=== PATIENT | male | born 1980 | race Caucasian/White ===

== ENCOUNTER 2018-05-16 14:29 | Emergency (ER) | payer SELFPAY ==
[2018-05-16 14:30] VITALS: BP 135/90; PULSE 95; RESP 17; TEMP 36.8; O2SAT 100; BMI 26.3
--- NOTE | 2018-05-16 14:41 | NURSING ---
NO OLD EKGS
--- NOTE | 2018-05-16 14:54 | RAD_ITS ---
STUDY: X-RAY CHEST REASON FOR EXAM: Male, 37 years old. Weakness and mid chest pain. TECHNIQUE: Single AP portable view of the chest. COMPARISON: None. FINDINGS: EKG electrodes are seen. The lungs are clear and expanded. There is no demonstrated pleural abnormality. Normal size heart. Normal mediastinum and reba. Normal visualized pulmonary arteries. Normal visualized aortic arch and descending thoracic aorta. Normal visualized thoracic spine. Normal visualized ribs, clavicles, and shoulders. There is no demonstrated abnormality of the visualized soft tissue structures of the upper abdomen. RAD/Chest 1 View (Portable) IMPRESSION: Normal x-ray examination of the chest. Electronically Signed: Dimitri Durham MD at 15:12 EDT Tel [phone], Service support ,
--- NOTE | 2018-05-16 14:54 | EKG12_ITS ---
Test Reason : CP Blood Pressure : / mmHG Vent. Rate : 074 BPM Atrial Rate : 074 BPM P-R Int : 134 ms QRS Dur : 088 ms QT Int : 396 ms P-R-T Axes : 063 044 029 degrees QTc Int : 439 ms Normal sinus rhythm Normal ECG Confirmed by GABRIELLA GOMEZ, MITA ([id number]), news editor DEE ARBOLEDA ([id number]) on 05/20/2018 2:49:32 PM Referred By: LETTY Confirmed By:MITA QUIROZ MD
--- NOTE | 2018-05-16 14:57 | ED.VISSUMM ---
- ER Visit Summary Date of Service: 05/16/18 Chief Complaint: Multiple complaints History of Present Illness: The patient is a 37 M with multiple complaints. Over the past 2 weeks he has had increasing reflux. It seems to be worse when he eats anything. He is not taking anything for it. He also reports right ear pain on and off. He feels hot without objective fever. He also complains of blurry vision in both eyes today at work for about an hour. No weakness or numbness. No facial droop. No speech changes. No vertigo. No tinnitus. He does have nausea but no vomiting. No shortness of breath or respiratory symptoms. Patient reports a history of smoking, GERD, depression, and migraines. He never had a stress test or any history of coronary disease. He has no history of PE or DVT. No history of aortic pathology or vascular pathology. Physical Examination: Afebrile and vital signs unremarkable. Patient is sitting in no acute distress. Alert and oriented. HEENT exam unremarkable. Neck is nontender. Heart regular rate and rhythm with no murmurs. Lungs clear bilaterally. Abdomen soft. Pulses strong and equal. Calf soft and supple. Cranial nerves grossly intact. No focal or lateralizing neurologic abnormalities grossly. Test Results: EKG showed sinus rhythm at a rate of 74 with no sign of acute ischemia or infarction pattern. We will check basic labs and a chest x-ray. Emergency Department Course and Treatment: Patient has multiple symptoms. The most concerning would be his chest pain. I did check an EKG, chest x-ray, and labs. He is PERC negative. There is nothing to suggest stroke. There is nothing to suggest vascular pathology like dissection. Patient was treated with a GI cocktail while awaiting results. White count 12.1 otherwise CBC normal. BMP normal. Troponin normal. Chest x-ray normal. Patient has nothing to suggest ACS, PE, dissection, stroke. He is low risk or no risk for all the above and appropriate for outpatient follow-up. This was discussed with the patient. He was referred to Dr. kirkpatrick who is on-call for new patients. Treatment Plan: As above Disposition: Discharged Impression: 1. Chest pain unclear etiology This note was generated with [employer] dictation software. It may contain incorrect words, spelling, and punctuation that were not noted in review of the chart prior to signing ED Disposition - Plan for ED Patient: Chief Complaint: Chest Pain Referrals: Care Physician,No Primary [Primary Care Provider] -
[2018-05-16 14:59] VITALS: O2SAT 98
--- NOTE | 2018-05-16 15:01 | ED.DCSUM_ITS ---
- ER Visit Summary Date of Service: 05/16/18 Chief Complaint: Multiple complaints History of Present Illness: The patient is a 37 M with multiple complaints. Over the past 2 weeks he has had increasing reflux. It seems to be worse when he eats anything. He is not taking anything for it. He also reports right ear pain on and off. He feels hot without objective fever. He also complains of blurry vision in both eyes today at work for about an hour. No weakness or numbness. No facial droop. No speech changes. No vertigo. No tinnitus. He does have nausea but no vomiting. No shortness of breath or respiratory symptoms. Patient reports a history of smoking, GERD, depression, and migraines. He never had a stress test or any history of coronary disease. He has no history of PE or DVT. No history of aortic pathology or vascular pathology. Physical Examination: Afebrile and vital signs unremarkable. Patient is sitting in no acute distress. Alert and oriented. HEENT exam unremarkable. Neck is nontender. Heart regular rate and rhythm with no murmurs. Lungs clear bilaterally. Abdomen soft. Pulses strong and equal. Calf soft and supple. Cranial nerves grossly intact. No focal or lateralizing neurologic abnormalities grossly. Test Results: EKG showed sinus rhythm at a rate of 74 with no sign of acute ischemia or infarction pattern. We will check basic labs and a chest x-ray. Emergency Department Course and Treatment: Patient has multiple symptoms. The most concerning would be his chest pain. I did check an EKG, chest x-ray, and labs. He is PERC negative. There is nothing to suggest stroke. There is nothing to suggest vascular pathology like dissection. Patient was treated with a GI cocktail while awaiting results. White count 12.1 otherwise CBC normal. BMP normal. Troponin normal. Chest x- ray normal. Patient has nothing to suggest ACS, PE, dissection, stroke. He is low risk or no risk for all the above and appropriate for outpatient follow-up. This was discussed with the patient. He was referred to Dr. kirkpatrick who is on-call for new patients. Treatment Plan: As above Disposition: Discharged Impression: 1. Chest pain unclear etiology This note was generated with [employer] dictation software. It may contain incorrect words, spelling, and punctuation that were not noted in review of the chart prior to signing ED Disposition - Plan for ED Patient: Chief Complaint: Chest Pain Referrals: Care Physician,No Primary [Primary Care Provider] -
[2018-05-16] MEDS: Mag Hydrox/Al Hydrox/Simeth 30 ML UDC PO (15:09)
[2018-05-16 15:10] VITALS: BP 143/93; PULSE 79; RESP 16; O2SAT 98
[2018-05-16 15:16] LABS: Absolute Lymphocyte Count 2.71 X10^3/ul (0.83-4.51); Absolute Neutrophil Count 8.3 X10^3/uL (2.0-7.7); Basophil# 0.03 X10^3/uL; Basophil% 0.2 % (0-1); Eosinophil# 0.31 X10^3/uL; Eosinophils% 2.6 % (0-5); Hematocrit 42.5 % (40-54); Hemoglobin 14.3 g/dl (13.0-16.5); Lymphocyte # 2.71 X10^3/ul (4.0); Lymphocyte % 22.3 % (19-41); Mean Corp Hgb Conc 33.6 g/gl (32-36); Mean Corpuscular Hgb 29.8 pg (27.0-32.0); Mean Corpuscular Volume 88.5 fL (80-94); Mean Platelet Vol. 10.3 fl (6.2-12.0); Monocyte# 0.75 X10^3/uL; Monocyte% 6.2 % (0-10); Neutrophil # 8.32 X10^3/uL (2.7-7.7); Neutrophil % 68.5 % (47-70); POSITIVE COUNT NO; POSITIVE DIFFERENTIAL NO; POSITIVE MORPHOLOGY NO; Platelet Count 252 K/mm3 (150-450); RBC Distribution Width CV 12.8 % (11.6-14.6); RBC Distribution Width SD 41.2 fl (35.1-43.9); White Blood Count 12.1 K/mm3 (4.4-11.0)
[2018-05-16 15:21] LABS: Anion Gap 10 (5-15); BUN 15 mg/dL (7-18); BUN/Creat Ratio 13.6 RATIO (10-20); Calcium,Total 9.2 mg/dL (8.5-10.1); Chloride 106 mmol/L (98-107); EST Glomerular Filtration Rate 79 mL/min (>60); Est Glom Filt Rate - Afr Amer 96 mL/min (>60); Estimated Creatinine Clearance 93.09 ml/min; Glucose 87 mg/dL (74-106); Potassium 3.9 mmol/L (3.5-5.1); Sodium Level 142 mmol/L (136-145)
--- NOTE | 2018-05-16 16:03 | ED.DEP ---
ED Disposition - Plan for ED Patient: Chief Complaint: Chest Pain Instructions: ED Chest Pain Atypical Unkn Cause Prescriptions: Naproxen [Naprosyn] 500 mg PO BID PRN #20 tab Referrals: Mya Kenyon DO [NON-STAFF] -
[2018-05-16 16:28] VITALS: BP 143/93; PULSE 76; RESP 23; O2SAT 97
== END 2018-05-16 16:28 | disposition home or self-care (01) ==
LOC: ED 15:01
PROVIDERS: Emergency Provider Emergency Medicine
DX: R07.9 Chest pain, unspecified (principal); F17.210 Nicotine dependence, cigarettes, uncomplicated
CPT/HCPCS: 71045; 80048; 84484; 85025; 93005; 99285; A4216

== ENCOUNTER → 2018-11-04 11:01 | Outpatient (CLI) | payer SELFPAY ==
--- NOTE | 2018-11-04 11:06 | US_ITS ---
STUDY: RENAL ULTRASOUND - COMPLETE REASON FOR EXAM: Male, 37 years old. Elevated BUN/creatinine TECHNIQUE: Ultrasound evaluation of the kidneys was performed with real-time and static davis-scale imaging. COMPARISON: None. FINDINGS: RIGHT KIDNEY: Normal location of the right kidney, which is normal in size. The right kidney measures 10.7 x 5.5 x 4.3 cm. There is a normal cortex of the right kidney. The renal cortex measures 1.3 cm. There is a complex 1.7 cm cyst and a simple 1.6 cm cyst. There are no right renal calculi. There is no right hydronephrosis. DISTAL RIGHT URETER: There is non-visualization of the distal right ureter. There is no demonstrated right ureterovesical junction calculus. There is a visualized right ureteral jet. LEFT KIDNEY: Normal location of the left kidney, which is normal in size. The left kidney measures 11.9 x 5.4 x 6.4 cm. There is a normal cortex of the left kidney. The renal cortex measures 2.0 cm. There is no left renal mass or cyst. There are no left renal calculi. There is no left hydronephrosis. DISTAL LEFT URETER: There is non-visualization of the distal left ureter. There is no demonstrated left ureterovesical junction calculus. There is a visualized left ureteral jet. AORTA: There is no elongation or tortuosity of the abdominal aorta. I.V.C.: The IVC is patent. BLADDER: The distended urinary bladder has a volume of 482.2 ml. There is a normal wall thickness of the distended urinary bladder. There is no demonstrated mass within the urinary bladder. There are no demonstrated bladder calculi. US/Kidney and Bladder IMPRESSION: Renal cysts, no obstructive uropathy or suspicious solid lesion Electronically Signed: David Mckeon MD at 18:13 EDT , Service support ,
== END ==
LOC: US 11:03
PROVIDERS: Family Provider Family Medicine; PCP Family Medicine; Referring Provider Family Medicine; Visit Provider Family Medicine
DX: N28.1 Cyst of kidney, acquired (principal)
CPT/HCPCS: 76770

== ENCOUNTER 2024-06-12 14:01 | Emergency (ER) | payer SELFPAY ==
[2024-06-12 14:04] VITALS: BP 157/106; PULSE 87; RESP 18; TEMP 36.4; O2SAT 100; BMI 25.5
[2024-06-12 15:49] VITALS: BP 140/98; PULSE 77; RESP 17; O2SAT 97
--- NOTE | 2024-06-12 16:39 | EKG12_ITS ---
Test Reason : Blood Pressure : / mmHG Vent. Rate : 065 BPM Atrial Rate : 065 BPM P-R Int : 140 ms QRS Dur : 086 ms QT Int : 414 ms P-R-T Axes : 067 052 047 degrees QTc Int : 430 ms Normal sinus rhythm Normal ECG Confirmed by ARIELA MILLAN MD ([id number]), index editor SOLEDAD FARMER ([id number]) on 06/13/2024 9:58:38 AM Referred By: Confirmed By:ARIELA MILLAN MD
--- NOTE | 2024-06-12 16:41 | ED.VIS.GI ---
HPI HPI - GI History of Present Illness Chief Complaint: Chest Other Informant: patient Narrative Narrative: 43-year-old male states he has been having epigastric pain within 20 minutes of swallowing any food regardless of what it is for the past 2 or so weeks. Today he was having it, and pain went up his chest and he felt like he was having some trouble breathing. That is gone now, he still has pain near his xiphoid process but it is milder relatively. This discomfort is been associated with nausea but no vomiting. He has had normal colored bowel movements without any melena or bright red blood. No palpitations or syncopal episodes. He denies any leg pain or swelling or recent long travel or immobilization/hospitalization/surgery recently. He rarely uses alcohol, he had 2 beers last night but it did not make the pain come on or make it worse. He states he does take a lot of ibuprofen, sometimes several times a week due to migraines, as it helps those. He does not see a primary care doctor and accordingly is on no medications chronically. [facility] Medical History (Updated 06/12/24 @ 19:[address] Bon Bruce MD) Migraines Home Medications ?Medication ?Instructions ?Recorded ?Last Taken ?Type meloxicam 15 mg tablet 15 mg PO DAILY PRN Pain #30 tabs 06/12/24 Unknown Rx pantoprazole 40 mg tablet,delayed 40 mg PO DAILY #30 tabs 06/12/24 Unknown Rx release sucralfate 1 gram tablet (Carafate) 1 g PO TID 1 week #21 tabs 06/12/24 Unknown Rx Allergy/AdvReac Type Severity Reaction Status Date / Time No Known Allergies Allergy Verified 06/12/24 14:04 Family History (Updated 01/19/23 @ 08:06 by Winsome Goodman) Mother Hypertension Heart problem Arthritis Surgical History History of left knee surgery Social History (Updated 06/12/24 @ 16:[address] Bon Bruce MD) Smoking Status: Current every day smoker tobacco type: cigarettes alcohol intake: current alcohol intake frequency: a few times a month ROS ROS ED Constitutional Constitutional ED: Denies chills or fever(s) Eyes Eyes: Denies change in vision or diplopia ENT ENT ED: Denies rhinorrhea or sore throat Cardiovascular Cardiovascular: Reports chest pain; Denies palpitations Respiratory/Chest Respiratory/Chest: Reports dyspnea; Denies cough Gastrointestinal Gastrointestinal: Reports abdominal pain and nausea; Denies diarrhea, hematochezia, melena or vomiting Genitourinary Genitourinary ED: Denies dysuria or hematuria Musculoskeletal Musculoskeletal: Denies back pain or neck pain Integumentary Denies abscess or rash Neurologic Neurologic: Denies headache(s), paresthesias or weakness Psychiatric Psychiatric: Denies anxiety or suicidal thoughts EXAM Physical Exam Const Vital Signs: 06/12/24 14:04 06/12/24 15:49 06/12/24 16:55 Temperature 97.6 F L Temperature Source Temporal Pulse Rate 87 77 Respiratory Rate 18 17 Blood Pressure 157/106 H 140/98 H Blood Pressure Mean 123 112 Pulse Ox 100 97 Oxygen Delivery Method Room Air Room Air Room Air 06/12/24 17:00 06/12/24 18:25 Temperature Temperature Source Pulse Rate 67 72 Respiratory Rate 16 20 H Blood Pressure 139/91 H 137/96 H Blood Pressure Mean 107 109 Pulse Ox 98 95 Oxygen Delivery Method Room Air Room Air Positive well nourished and well developed General Appearance ED: well developed and NAD HEENT Reports moist mucous membranes normocephalic and atraumatic Eyes PERRL and EOMs intact bilaterally Neck full ROM and supple Resp normal respiratory effort and clear to auscultation bilaterally Cardio regular rate, regular rhythm and no murmurs GI non-distended GI Narrative: Mild tenderness high epigastric area, otherwise benign abdomen. No pulsatile mass. Normal inspection. Auscultation: normoactive bowel sounds Palpation: soft Back/Spine no CVA tenderness General Back: other FROM Extremity normal to inspection General Extremety ED: Negative for edema, pulses abnormal or tenderness General Extremity: Negative for edema or pulses abnormal Neuro oriented x3, CN's II-XII intact bilaterally and no sensory deficits noted Sensorium / Orientation: awake and alert Motor Exam: strength 5/5 throughout Skin no rashes or lesions noted and no wounds MDM MDM MDM Narrative Medical decision making narrative: I suspect this patient's episode of chest discomfort today was related to the abdominal discomfort he has been having. This is confirmed with a negative troponin and normal EKG and a normal 1 view chest x-ray on my interpretation as confirmed by radiology. Differential for his upper abdominal pain includes gastritis, peptic ulcer disease, biliary colic, pancreatitis, hepatitis, other acute GI issues. My suspicion is that this is a functional upper GI problem hence the esophagus being involved in giving him chest discomfort today, at least that is my suspicion. The chest x-ray also in my interpretation does not show any free air under the diaphragm to suggest a perforated stomach ulcer. His labs show mild leukocytosis which is very nonspecific, no sign of anemia or elevated BUN to suggest an acute upper GI hemorrhage, and his liver and lipase labs are all normal. In the meantime he was given a GI cocktail, this help temporarily but then he gets more epigastric burning although it was mild. I did a bedside ultrasound screen for gallstones, it is negative for gallstones, gallbladder wall 0.17 cm, within normal limits, and he has a negative sonographic Celeste. Given this I think he is stable for discharge home. I am going to change his ibuprofen to meloxicam and place him on a PPI along with Carafate for the next week, advised to follow-up he was given the next doctor on the unassigned list to follow-up with. Lab Data Attestation: I reviewed the patient's lab results. Labs: Laboratory Results - last 24 hr 06/12/24 15:45 WBC 11.5 H RBC 4.68 Hgb 13.9 Hct 41.4 MCV 88.5 MCH 29.7 MCHC 33.6 RDW Std Deviation 40.8 RDW Coeff of Radha 12.5 Plt Count 279 MPV 10.4 Immature Gran % (Auto) 0.300 Neut % (Auto) 61.6 Lymph % (Auto) 30.7 Posey % (Auto) 5.4 Eos % (Auto) 1.6 Baso % (Auto) 0.4 Absolute Neuts (auto) 7.1 Absolute Lymphs (auto) 3.53 Nucleated RBC % 0 Sodium 140 Potassium 3.9 Chloride 108 H Carbon Dioxide 26.0 Anion Gap 6 BUN 12 Creatinine 1.04 Estim Creat Clear Calc 92.61 Est GFR (MDRD) Af Amer 99 Est GFR (MDRD) Non-Af 82 BUN/Creatinine Ratio 11.5 Glucose 81 Calcium 9.2 Total Bilirubin 0.50 AST 21 ALT 22 Alkaline Phosphatase 48 Troponin I High Sens 3 Total Protein 7.4 Albumin 4.2 Globulin 3.2 Albumin/Globulin Ratio 1.3 Lipase 46 Radiography Diagnostic Testing: Clinical Impression(s) from Imaging Studies Chest X-Ray 06/12/24 17:10 IMPRESSION: No radiographic evidence of acute cardiopulmonary disease. Electronically Signed: Cr Kim DO at 18:18 EDT Reading Location ID and State: [facility] / [place] Tel [phone], Service support , Rhythm Strip Rhythm Strip: Sinus Rhythm Rate: 65 Ectopy: None EKG Initial EKG: Attestation: I personally reviewed and interpreted this EKG as follows: Interpretation: Sinus Rhythm and No Acute Injury Pattern Comments: Normal EKG Discharge Plan Triage Chief Complaint: Chest Other Other Complaint: Abd Pain ED Provider: Bon Bruce Dx/Rx/DC Orders Clinical Impression: Acute gastritis without bleeding, Chest pain, non-cardiac Instructions: ED Chest Pain, Noncardiac, ED Gastritis Ulcer No Abx Prescriptions: New sucralfate [Carafate] 1 gram tablet 1 g PO TID 7 Days Qty: 21 0RF pantoprazole 40 mg tablet,delayed release (DR/EC) 40 mg PO DAILY Qty: 30 0RF Changed meloxicam 15 mg tablet 15 mg PO DAILY PRN (Reason: Pain) Qty: 30 1RF Rx Instructions: Stop/do not take any other NSAID while taking Mobic. Primary Care Provider: Care Physician,No Primary Referrals: Fe Carmichael DO [Med Staff - Active Staff] - 1-2 Weeks Care Physician,No Primary [Primary Care Provider] - Print Language: Urdu Disposition Disposition: Home, Self Care
[2024-06-12] MEDS: Ondansetron 4 MG/2 ML Vial IV (16:57)
[2024-06-12] MEDS: Mag Hydrox/Al Hydrox/Simeth 30 ML UDC PO (16:58)
[2024-06-12] MEDS: Pantoprazole Sodium 40 MG Tablet PO (16:58)
[2024-06-12] MEDS: Lidocaine 2% Viscous15 ML UDC 15 ML PO (16:58)
[2024-06-12 17:00] VITALS: BP 139/91; PULSE 67; RESP 16; O2SAT 98
[2024-06-12 17:02] LABS: Hematocrit 41.4 % (40-54); Hemoglobin 13.9 g/dL (13.0-16.5); Lymphocyte % 30.7 % (19-41); Mean Corp Hgb Conc 33.6 g/dL (32-36); Mean Corpuscular Hgb 29.7 pg (27.0-32.0); Mean Corpuscular Volume 88.5 fL (80-94); Mean Platelet Vol. 10.4 fl (6.2-12.0); Neutrophil % 61.6 % (47-70); Platelet Count 279 K/mm3 (150-450); RBC Distribution Width CV 12.5 % (11.6-14.6); RBC Distribution Width SD 40.8 fl (35.1-43.9); Red Blood Count 4.68 M/mm3 (4.6-6.2); White Blood Count 11.5 K/mm3 (4.4-11.0)
[2024-06-12 17:03] LABS: Absolute Lymphocyte Count 3.53 X10^3/uL (0.83-4.51); Absolute Neutrophil Count 7.1 X10^3/uL (2.0-7.7); Basophil# 0.05 X10^3/uL; Basophil% 0.4 % (0-1); Eosinophil# 0.18 X10^3/uL; Eosinophils% 1.6 % (0-5); Lymphocyte # 3.53 X10^3/ul (0.83-4.51); Monocyte# 0.62 X10^3/uL; Monocyte% 5.4 % (0-10); NRBC Flagged by Analyzer 0 % (0-5); Neutrophil # 7.08 X10^3/uL (2.7-7.7)
--- NOTE | 2024-06-12 17:10 | RAD_ITS ---
INDICATION: chest pain EXAMINATION/TECHNIQUE: X-RAY - XR Chest 1 View COMPARISON: May 16, 2018 FINDINGS: LINES/DEVICES: None. LUNGS: No consolidation, edema or effusion. No pneumothorax. MEDIASTINUM AND CARDIOVASCULAR STRUCTURES: Cardiac silhouette not enlarged. Central airways and mediastinal contour are unremarkable. BONES AND SOFT TISSUES: Unremarkable. RAD/Chest 1 View (Portable) IMPRESSION: No radiographic evidence of acute cardiopulmonary disease. Electronically Signed: Cr Kim DO at 18:18 EDT ,
[2024-06-12 17:29] LABS: ALB/GLOB Ratio 1.3 RATIO (0.9-2.4); AST(SGOT) 21 U/L (15-37); Alanine Aminotransfer ALT/SGPT 22 U/L (16-61); Albumin, Serum 4.2 g/dL (3.2-5.0); Alkaline Phosphatase 48 U/L (45-117); Anion Gap 6 (5-15); BUN 12 mg/dL (7-18); BUN/Creat Ratio 11.5 RATIO (10-20); Calcium,Total 9.2 mg/dL (8.5-10.1); Chloride 108 mmol/L (98-107); Creatinine, Serum 1.04 mg/dL (0.70-1.30); EST Glomerular Filtration Rate 82 mL/min (>60); Est Glom Filt Rate - Afr Amer 99 mL/min (>60); Estimated Creatinine Clearance 92.61 ml/min; Globulin 3.2 g/dL (2.2-4.2); Glucose 81 mg/dL (74-106); Lipase 46 U/L (13-75); Potassium 3.9 mmol/L (3.5-5.1); Protein, Total 7.4 g/dL (6.4-8.2); Sodium Level 140 mmol/L (136-145); Troponin-I HS 3 pg/mL (3.0-78.0)
[2024-06-12 18:25] VITALS: BP 137/96; PULSE 72; RESP 20; O2SAT 95
[2024-06-12 19:47] VITALS: BP 138/98; PULSE 70; RESP 16; TEMP 36.8; O2SAT 97
== END 2024-06-12 19:55 | disposition home or self-care (01) ==
PROVIDERS: Emergency Provider Emergency Medicine; Visit Provider Emergency Medicine
DX: K29.00 Acute gastritis without bleeding (principal); R07.89 Other chest pain; G43.909 Migraine, unspecified, not intractable, without status migrainosus; F17.210 Nicotine dependence, cigarettes, uncomplicated
CPT/HCPCS: 71045; 80053; 83690; 84484; 85025; 93005; 96374; 99285; A4216; J2405

== ENCOUNTER 2025-01-14 13:50 | Emergency (ER) | payer SELFPAY ==
[2025-01-14] VITALS (7 sets, daily range): BP systolic 134–149; BP diastolic 87–107; PULSE 76–91; RESP 15–22; TEMP 36.8–37.1; O2SAT 97–100; BMI 24.3
--- NOTE | 2025-01-14 14:46 | EKG12_ITS ---
Test Reason : GENERAL Blood Pressure : */* mmHG Vent. Rate : 87 BPM Atrial Rate : 87 BPM P-R Int : 128 ms QRS Dur : 84 ms QT Int : 368 ms P-R-T Axes : 62 31 43 degrees QTcB Int : 442 ms Normal sinus rhythm Normal ECG Confirmed by WILLIAM JON ([id number]), tape editor ADENIKE PRASAD ([id number]) on 01/19/2025 8:05:00 AM Referred By: Heath Dixon Confirmed By: WILLIAM JON
--- NOTE | 2025-01-14 14:46 | RAD_ITS ---
PROCEDURE: CHEST 1 VIEW (PORTABLE) 01/14/2025 REASON FOR EXAM: DYSPNEA Confusion. TECHNIQUE: Frontal view of the chest. COMPARISON: None FINDINGS: Hardware: EKG electrodes are seen. Heart: Cardiac and mediastinal contours are stable. Lungs: No significant change in the appearance of the lungs. Bones: The bones are unremarkable. Other: RAD/Chest 1 View (Portable) IMPRESSION: No Acute Findings. Reading Location: [place] [id number]
--- NOTE | 2025-01-14 14:56 | EDS_ITS ---
HPI History of Present Illness Chief Complaint: General Illness Informant: patient Narrative Narrative: 44-year-old male presenting to the emergency room concern for nausea and lightheadedness. Patient states over the past several months he has had intermittent days where he is felt lightheaded when he exerts himself. He states they typically are isolated days. Over the past 3 days he has found that when he exerts himself he feels more lightheaded. He denies chest pain or palpitations. He feels like he is urinating significantly more frequently but he is also been drinking a lot of fluids. He states he cannot seem to quench his thirst. He notes night sweats and some intermittent dyspnea. He notes he is a smoker but is different than normal. He notes about a 15 pound weight loss over the past month. He notes cramping of his bilateral legs. He states he has had fevers ranging from 98 degrees to 100 and he took some ibuprofen this morning. No rashes. He denies any abdominal bloating. He notes some intermittent diarrhea over the past couple months but also has been having normal stools. He does not have a current primary care doctor and is not currently treated for any medical problems. No black or bloody stools. I do see that the patient was seen in 2023 with gastritis. [facility] Medical History Migraines Home Medications ?Medication ?Instructions ?Recorded ?Last Taken ?Type pantoprazole 40 mg tablet,delayed 40 mg PO DAILY #30 t abs 01/14/25 Unknown Rx release (Protonix) Allergy/AdvReac Type Severity Reaction Status Date / Time No Known Allergies Allergy Verified 01/14/25 13:51 Family History Mother Hypertension Heart problem Arthritis Surgical History History of left knee surgery Social History Smoking Status: Current every day smoker tobacco type: cigarettes alcohol intake: current alcohol intake frequency: a few times a month ROS ROS ED Constitutional Constitutional ED: Reports chills, fever(s), sweats and weight loss Eyes Eyes: Denies change in vision or diplopia ENT ENT ED: Denies ear pain, rhinorrhea or sore throat Cardiovascular Cardiovascular: Reports other Details: Lightheadedness ; Denies chest pain, orthopnea, palpitations or racing heartbeat Respiratory/Chest Respiratory/Chest: Reports dyspnea; Denies cough or orthopnea Gastrointestinal Gastrointestinal: Reports diarrhea and nausea; Denies abdominal pain or vomiting Genitourinary Genitourinary ED: Reports urinary frequency; Denies dysuria or hematuria Musculoskeletal Musculoskeletal: Denies arthralgias or myalgias Integumentary Denies abscess or rash Neurologic Neurologic: Denies headache(s) or weakness Psychiatric Psychiatric: Denies anxiety, depression, suicidal ideation or suicidal thoughts Endocrine Endocrinology: Reports polydipsia and polyuria; Denies polyphagia Allergic/Immunologic Allergic/Immunologic ED: Denies mouth swelling, tongue swelling or urticaria EXAM Physical Exam Const Vital Signs: 01/14/25 13:51 01/14/25 13:59 01/14/25 15:51 Temperature 98.7 F Temperature Source Oral Pulse Rate 87 76 Respiratory Rate 18 15 Respiratory Effort Normal Respiratory Pattern Normal Blood Pressure 146/107 H 149/97 H Blood Pressure Mean 120 114 Pulse Ox 97 98 Oxygen Delivery Method Room Air Room Air 01/14/25 16:36 01/14/25 16:45 01/14/25 17:00 Temperature Temperature Source Pulse Rate 91 76 83 Respiratory Rate 17 17 22 H Respiratory Effort Respiratory Pattern Blood Pressure Blood Pressure Mean Pulse Ox Oxygen Delivery Method 01/14/25 17:15 Temperature Temperature Source Pulse Rate 91 Respiratory Rate 21 H Respiratory Effort Respiratory Pattern Blood Pressure 134/87 H Blood Pressure Mean 102 Pulse Ox 100 Oxygen Delivery Method Room Air MDM MDM MDM Narrative Medical decision making narrative: Differential diagnosis includes but not limited to cardiac dysrhythmia electrolyte abnormality hyperglycemia acute kidney injury UTI malignancy dehydration anemia My independent interpretation of the chest x-ray is no acute process. EKG is a normal sinus rhythm at a rate of 87 bpm. Accu-Chek is 92. White blood cell count is elevated 14 with 71.8 neutrophils. Hemoglobin is 14 platelet count is 289. BMP liver lipase shows no acute findings. Urinalysis is negative. CT of the brain as well as CT of the abdomen pelvis with IV contrast was obtained. These were read by radiology and reviewed by myself. Noncontrasted head CT shows no acute findings. CT of the abdomen pelvis does not demonstrate any significant findings that I feel would explain his symptomology. Please see radiologist full read. Patient has been diagnosed with gastritis in the past. I do wonder if this could impart be to gastritis. Will place him on Protonix. Would asked that he follow-up with gastroenterology for possible EGD or further workup. Social work did visit with patient and encouraged establishment of primary care. History & Record Review Discussion w/independent historian: Patient Additional record(s) reviewed:: Prior ED visit and Prior labs Lab Data Attestation: I reviewed the patient's lab results. Labs: Laboratory Results - last 24 hr 01/14/25 01/14/25 01/14/25 14:57 15:03 15:48 WBC 14.0 H RBC 4.58 L Hgb 14.0 Hct 41.3 MCV 90.2 MCH 30.6 MCHC 33.9 RDW Std Deviation 41.7 RDW Coeff of Radha 12.6 Plt Count 289 MPV 10.5 Immature Gran % (Auto) 0.400 Neut % (Auto) 71.8 H Lymph % (Auto) 21.9 [place] % (Auto) 4.9 Eos % (Auto) 0.6 Baso % (Auto) 0.4 Absolute Neuts (auto) 10.1 H Absolute Lymphs (auto) 3.07 Nucleated RBC % 0 Sodium 137 Potassium 3.7 Chloride 103 Carbon Dioxide 22.2 Anion Gap 12 BUN 11 Creatinine 1.04 Estim Creat Clear Calc 91.64 Est GFR (MDRD) Non-Af 90 BUN/Creatinine Ratio 10.1 Glucose 92 Calcium 9.3 Magnesium 2.0 Total Bilirubin 0.50 Direct Bilirubin 0.21 AST 21 ALT 15 Alkaline Phosphatase 56 Total Protein 7.0 Albumin 4.4 Globulin 2.6 Lipase 32 Urine Color Straw Urine Clarity Clear Urine pH 6.5 Ur Specific Gunter 1.005 Urine Protein Negative Urine Glucose (UA) Normal Urine Ketones Negative Urine Occult Blood Negative Urine Nitrite Negative Urine Bilirubin Negative Urine Urobilinogen Normal Ur Leukocyte Esterase Negative Urine RBC 0-5 SEEN Urine WBC 0 SEEN Ur Squamous Epith Cells 0 SEEN Urine Bacteria 0 SEEN Urine Mucus 0 SEEN POC Glucose 92 Radiography Diagnostic Testing: Clinical Impression(s) from Imaging Studies Chest X-Ray 01/14/25 14:46 IMPRESSION: No Acute Findings. Reading Location: [facility] Abdomen/Pelvis CT 01/14/25 16:10 IMPRESSION: Fluid-filled portions of the small bowel, no dilatation or wall thickening, may represent ileus versus enteritis. OVERALL FINAL ASSESSMENT: . LI-RADS is not meant to be used in patients <18 years or patients with cirrhosis due to congenital hepatic fibrosis or due to vascular disorders, because these patients have a lower chance of developing HCC. Reading Location: [facility] Brain CT 01/14/25 16:10 IMPRESSION: NO ACUTE FINDINGS Reading [facility] E[facility] Initial EKG: Attestation: I personally reviewed and interpreted this EKG as follows: Comments: Normal sinus rhythm ventricular rate of 87 bpm. Discharge Plan Triage Chief Complaint: General Illness ED Provider: Heath Dixon Dx/Rx/DC Orders Clinical Impression: Nausea, Abnormal weight loss Prescriptions: New pantoprazole [Protonix] 40 mg tablet,delayed release (DR/EC) 40 mg PO DAILY Qty: 30 0RF Primary Care Provider: Care Physician,No Primary Referrals: Kevin,Calderon, [Med Staff - Active Staff] - (for GI evaluation of nausea/weight loss) Care Physician,No Primary [Primary Care Provider] - Print Language: Tamazight Disposition Disposition: Home, Self Care
[2025-01-14 15:21] LABS: Bedside Glucose 92 mg/dL (74-106)
[2025-01-14 15:31] LABS: Absolute Lymphocyte Count 3.07 X10^3/uL (0.83-4.51); Absolute Neutrophil Count 10.1 X10^3/uL (2.0-7.7); Basophil# 0.05 X10^3/uL; Basophil% 0.4 % (0-1); Eosinophil# 0.08 X10^3/uL; Eosinophils% 0.6 % (0-5); Hematocrit 41.3 % (40-54); Lymphocyte # 3.07 X10^3/ul (0.83-4.51); Lymphocyte % 21.9 % (19-41); Mean Corp Hgb Conc 33.9 g/dL (32-36); Mean Corpuscular Hgb 30.6 pg (27.0-32.0); Mean Corpuscular Volume 90.2 fL (80-94); Mean Platelet Vol. 10.5 fl (6.2-12.0); Monocyte# 0.69 X10^3/uL; Monocyte% 4.9 % (0-10); NRBC Flagged by Analyzer 0 % (0-5); Neutrophil % 71.8 % (47-70); Platelet Count 289 K/mm3 (150-450); RBC Distribution Width CV 12.6 % (11.6-14.6); RBC Distribution Width SD 41.7 fl (35.1-43.9); Red Blood Count 4.58 M/mm3 (4.6-6.2)
[2025-01-14 15:44] LABS: AST(SGOT) 21 U/L (<=37); Alanine Aminotransfer ALT/SGPT 15 U/L (<=46); Albumin, Serum 4.4 g/dL (3.5-5.0); Alkaline Phosphatase 56 U/L (40-129); Anion Gap 12 (5-15); BUN 11 mg/dL (4-19); BUN/Creat Ratio 10.1 RATIO (10-20); Bilirubin, Direct 0.21 mg/dL (0.00-0.30); Calcium,Total 9.3 mg/dL (7.6-11.0); Carbon Dioxide 22.2 mmol/L (21.0-32.0); Chloride 103 mmol/L (98-108); Creatinine, Serum 1.04 mg/dL (0.70-1.20); EST Glomerular Filtration Rate 90 (>60); Estimated Creatinine Clearance 91.64 ml/min (50-250); Globulin 2.6 g/dL (2.2-4.2); Glucose 92 mg/dL (70-99); Lipase 32 U/L (13-75); Potassium 3.7 mmol/L (3.3-5.1); Sodium Level 137 mmol/L (133-145)
[2025-01-14 15:54] LABS: Bacteria 0 SEEN /hpf (None Seen); Mucous, Urine 0 SEEN /hpf (<or=2+); Squamous Epithelial Cells - UA 0 SEEN /hpf (0-5); White Blood Cells 0 SEEN /hpf (0-5)
--- NOTE | 2025-01-14 16:10 | CT_ITS ---
PROCEDURE: ABDOMEN/PELVIS W IV CONT ONLY 01/14/2025 REASON FOR EXAM: NAUSEA WEIGHT LOSS TECHNIQUE: Abdomen and pelvis CT with intravenous contrast. Coronal and Sagittal reconstruction series were provided. PATIENT PREPARATION: Per protocol ORAL CONTRAST TYPE: None. AMOUNT: mL CONTRAST: Isovue 370 VOLUME: 94 mL Not Provided Gauge IV One or more dose reduction techniques were used (e.g., Automated exposure control, adjustment of the mA and/or kV according to patient size, use of iterative reconstruction technique. RADIATION DOSE SUMMARY: CTDlvol: 17 mGy DLP: 933 mGycm COMPARISON: None FINDINGS: Lung bases: Mild dependent atelectasis Liver: Normal size. No mass. Gallbladder: Unremarkable Spleen: Normal size. Pancreas: Normal size without evidence of mass surrounding inflammation or ductal dilation. Adrenals: Unremarkable Kidneys: Small bilateral renal cysts. No follow-up is recommended. No evidence of hydronephrosis or nephrolithiasis. Bladder: Unremarkable Reproductive Organs: Unremarkable Bowel: Evaluation of the bowel loops are limited due to lack of oral contrast. Stomach appears grossly unremarkable. Fluid-filled portions of the small bowel, particularly distal small bowel within the right lower quadrant, no dilatation no wall thickening or adjacent stranding. Differentials would include ileus versus enteritis. Large bowel is grossly unremarkable. Appendix: Unremarkable Lymph nodes: No lymphadenopathy. Vasculature: Mild diffuse atherosclerotic calcifications are noted. Peritoneum / Retroperitoneum: Unremarkable Bones: Slight anterolisthesis of L3 on L4. CT/Abdomen/Pelvis W IV Cont ONLY IMPRESSION: Fluid-filled portions of the small bowel, no dilatation or wall thickening, may represent ileus versus enteritis. OVERALL FINAL ASSESSMENT: . LI-RADS is not meant to be used in patients <18 years or patients with cirrhosi s due to congenital hepatic fibrosis or due to vascular disorders, because these patients have a lower chance of developing HC C. Reading Location: [facility]
--- NOTE | 2025-01-14 16:10 | CT_ITS ---
PROCEDURE: BRAIN/HEAD WITHOUT CONTRAST 01/14/2025 REASON FOR EXAM: DIZZINESS NAUSEA TECHNIQUE: Head CT without intravenous contrast. Coronal and Sagittal reconstruction series were provided. One or more dose reduction techniques were used (e.g., Automated exposure control, adjustment of the mA and/or kV according to patient size, use of iterative reconstruction technique. RADIATION DOSE SUMMARY: CTDlvol: 47 mGy DLP: 1049 mGycm COMPARISON: None FINDINGS: Brain: Within normal limits for age CSF Spaces: Normal Sinuses/Mastoids: Clear at visualized levels Bones: Unremarkable CT/Brain/Head without Contrast IMPRESSION: NO ACUTE FINDINGS Reading Location: [facility]
[2025-01-14 16:57] LABS: Color, Urine Straw (Yellow); Glucose, Dipstick Normal (Normal); Ketone-Dipstick Negative (Negative); Leukocyte Esterase-Dipstick Negative /ul (Negative); Nitrite-Dipstick Negative (Negative); Occult Blood-Urine Negative /ul (Negative); Protein-Dipstick Negative (Negative); Specific Gravity, Urine 1.005 (1.002-1.030); Urine Bilirubin Dipstick Negative (Negative); Urine Clarity Clear (Clear); Urine Urobilinogen Normal (Normal); Urine pH 6.5 (5.0 - 8.0)
--- NOTE | 2025-01-14 17:33 | ED.RN ---
LAB CALLED FOR OUTSTANDING URINE RESULTS. RESPONSE I HAVE THE FIRST PART AND THE MICROSCOPIC IS RUNNING
--- NOTE | 2025-01-14 17:43 | ED.RN ---
CT CALLED FOR OUTSTANDING IMAGE READ. RESPONSE, IT LOOKS LIKE THEY READ THE BRAIN, AND IT SHOULD HAVE BEEN BACK AT 1715. I WILL CALL AND FIND OUT
[2025-01-14 17:49] LABS: Red Blood Cells-Urine 0-5 SEEN /hpf (0-5)
--- NOTE | 2025-01-14 18:07 | CM.ED ---
Social work Reason for referral: no PCP Referral source: case find This SW identified patient's lack of PCP and need for resources. This SW entered patient's room, introducing self and role at [facility]. Patient accepted SW visit and gave permission for SW to speak with patient's on the phone. Patient confirmed not having a PCP and accepted resources of [facility] Provider Directory and Liz Menezes information. Patient denied further needs at this time. Berta Eddy, [employer], [employer]
== END 2025-01-14 18:33 | disposition home or self-care (01) ==
PROVIDERS: Emergency Provider Emergency Medicine; Referring Provider Emergency Medicine; Visit Provider Emergency Medicine
DX: R11.0 Nausea (principal); R63.4 Abnormal weight loss; R61 Generalized hyperhidrosis; R42 Dizziness and giddiness; R06.00 Dyspnea, unspecified; F17.210 Nicotine dependence, cigarettes, uncomplicated
CPT/HCPCS: 70450; 71045; 74177; 80048; 80076; 81001; 82962; 83690; 83735; 85025; 93005; 99283; Q9967; A4216

== ENCOUNTER 2025-01-25 22:07 | Emergency (ER) | payer SELFPAY ==
[2025-01-25 22:08] VITALS: BP 159/87; PULSE 98; RESP 18; TEMP 36.6; O2SAT 100; BMI 23.5
[2025-01-25 22:54] LABS: Absolute Lymphocyte Count 3.57 X10^3/uL (0.83-4.51); Absolute Neutrophil Count 10.2 X10^3/uL (2.0-7.7); Basophil# 0.09 X10^3/uL; Basophil% 0.6 % (0-1); Eosinophil# 0.15 X10^3/uL; Hematocrit 41.6 % (40-54); Hemoglobin 14.5 g/dL (13.0-16.5); Lymphocyte # 3.57 X10^3/ul (0.83-4.51); Lymphocyte % 22.9 % (19-41); Mean Corp Hgb Conc 34.9 g/dL (32-36); Mean Corpuscular Hgb 30.7 pg (27.0-32.0); Mean Corpuscular Volume 87.9 fL (80-94); Mean Platelet Vol. 10.1 fl (6.2-12.0); Monocyte# 1.46 X10^3/uL; Monocyte% 9.4 % (0-10); NRBC Flagged by Analyzer 0 % (0-5); Neutrophil # 10.23 X10^3/uL (2.7-7.7); Neutrophil % 65.7 % (47-70); Platelet Count 287 K/mm3 (150-450); RBC Distribution Width CV 12.6 % (11.6-14.6); RBC Distribution Width SD 41.1 fl (35.1-43.9); Red Blood Count 4.73 M/mm3 (4.6-6.2); White Blood Count 15.6 K/mm3 (4.4-11.0)
[2025-01-25 23:00] VITALS: BP 125/82; PULSE 91; RESP 18; O2SAT 98
--- OUTSIDE RECORDS SUMMARY | 2025-01-25 23:08 | XMS RPT_ITS | CCD ---
Author Organization [facility] CliniSysd Care Team Providers Care Street Vendor Name Role Phone YAN HE Unavailable Unavailable GALDINO LU Unavailable Unavailable DERREK HONG Unavailable Unavailable DERREK HONG Unavailable Unavailable BAKENHASTER NATALIIA Unavailable Unavailable Unavailable Primary Care Provider Unavailabl e SELF Referring Unavailable Care Physician, No Primary Primary Care Provider Unavailable Dr. Heath Dixon DO Referring Provider Dr. Heath Dixon DO Emergency Provider Care Physician, No Primary Primary Care Unava ilable [place] Attending Unavailable Heath Dixon Attending Unavailable Heath Dixon Referring Unavailable Care Physician, No Primary Primary Care Unava ilable Medications Current Medications Medication Drug Class(es) Dates Sig (Normalized) Sig (Original) pantoprazole 40 mg delayed release oral tablet (2 sources) Proton Pump Inhibitor Start: 06-12-2024 End: 01-14-2025 take 1 tablet by mouth once daily Pantoprazole (Protonix) 40 mg tablet,delayed release (DR/EC) Active 40 mg PO DAILY January 14, 2025 12:00am Completed/Discontinued Medications Medication Drug Class(es) Dates Sig (Normalized) Sig (Original) meloxicam 15 mg oral tablet (3 sources) Nonsteroidal Anti-inflammatory Drug Start: 01-19-2023 End: 01-14-2025 take 1 tablet by mouth once daily as needed for pain Meloxicam 15 mg tablet Discontinued 15 mg PO DAILY as needed for Pain June 12, 2024 7:37pm January 14, 2025 3:04pm Stop/do not take any other NSAID while taking Mobic. naproxen 500 mg oral tablet (1 source) Nonsteroidal Anti-inflammatory Drug Start: 05-16-2018 End: 03-23-2023 take 1 tablet by mouth twice daily as needed Naproxen 500 MG tablet Discontinued 500 mg PO TWICE DAILY NEEDED May 16, 2018 12:00am March 23, 2023 2:38pm sucralfate 1000 mg oral tablet (1 source) Aluminum Complex Start: 06-12-2024 End: 01-14-2025 take 1 tablet by mouth three times daily Sucralfate (Carafate) 1 gram tablet Discontinued 1 g PO THREE TIMES A DAY 09 03June 12, 2024 12:00am January 14, 2025 3:04pm Problems Active Problems Problem Classification Problem Date Documented Da te Episodic/Chronic Gastritis and duodenitis (1 source) Acute gastritis; Translations: [Acute gastritis without bleeding] 06-20-2024 Episodic Joint disorders and dislocations; trauma-related (1 source) Derangement of medial meniscus; Translations: [Other meniscus derangements, unspecified medial meniscus, unspecified knee] 01-19-2023 Chronic Nausea and vomiting (4 sources) Nausea with vomiting, unspecified; Translations: [Nausea] Onset: 03-15-2017 01-14-2025 Episodic Other non-traumatic joint disorders (1 source) Pain in left knee; Translations: [Left knee pain] 01-19-2023 Episodic Other nutritional; endocrine; and metabolic disorders (1 source) Abnormal weight loss; Translations: [Abnormal weight loss] 01-14-2025 Episodic Unclassified (1 source) for GI evaluation of nausea/weight loss Past or Other Problems Problem Classification Problem Date Documented Da te Episodic/Chronic Abdominal pain (4 sources) Lower abdominal pain, unspecified; Translations: [Unspecified abdominal pain] Onset: 03-02-2017 Episodic Nonspecific chest pain (3 sources) Chest pain; Translations: [Chest pain, unspecified] Onset: 07-04-2024 06-12-2024 Episodic Otitis media and related conditions (6 sources) Other specified disorders of Eustachian tube, right ear; Translations: [Otitis media, unspecified, right ear] Onset: 03-22-2017 Episodic Results Test Name Value Interpretation Reference Range Facility 12 Lead EKGon 01-14-2025 12 Lead EKG [facility] Cardiovascular Services [address] [place] [address] 12 Lead EKG 01/14/25 1503 MR#: [id number] Acct: [id number] Name: NELLIE TERRY Rep #: [id number] : 1980 44 From: William Neumann MD Attending Dr: Status: DEP ER Ordering Dr: Heath Dixon DO Date: 01/14/25 Location: ED Sex: M C Admitted: Test Reason : GENERAL Blood Pressure : */* mmHG Vent. Rate : 87 BPM Atrial Rate : 87 BPM P-R Int : 128 ms QRS Dur : 84 ms QT Int : 368 ms P-R-T Axes : 62 31 43 degrees QTcB Int : 442 ms Normal sinus rhythm Normal ECG Confirmed by WILLIAM NEUMANN ([id number]), multimedia editor ADENIKE PRASAD ([id number]) on 01/19/2025 8:05:00 AM Referred By: Heath Dixon Confirmed By: WILLIAM NEUMANN 01/19/2505 Date William Neumann MD CC: Dr. Heath Dixon DO; No Primary Care Physician Signed Normal [facility] Abdomen/Pelvis W IV Cont ONL Yon 01-14-2025 Abdomen/Pelvis W IV Cont ONLY [facility] Imaging Services [address] [place] [id number] Abdomen/Pelvis W IV Cont ONLY MR#: [id number] Acct: [id number] Name: NELLIE TERRY Joy Rep #: [id number] : 1980 M 44 From: Rachel Raya DO PCP: Care Physician,No Primary Status: REG ER Study: Abdomen/Pelvis W IV Cont ONLY Date of Exam: Exam# [id number] Ordering Dr: Heath Dixon DO PROCEDURE: ABDOMEN/PELVIS W IV CONT ONLY 01/14/2025 REASON FOR EXAM: NAUSEA WEIGHT LOSS TECHNIQUE: Abdomen and pelvis CT with intravenous contrast. Coronal and Sagittal reconstruction series were provided. PATIENT PREPARATION: Per protocol ORAL CONTRAST TYPE: None. AMOUNT: mL CONTRAST: Isovue 370 VOLUME: 94 mL Not Provided Gauge IV One or more dose reduction techniques were used (e.g., Automated exposure control, adjustment of the mA and/or kV according to patient size, use of iterative reconstruction technique. RADIATION DOSE SUMMARY: CTDlvol: 17 mGy DLP: 933 mGycm COMPARISON: None FINDINGS: Lung bases: Mild dependent atelectasis Liver: Normal size. No mass. Gallbladder: Unremarkable Spleen: Normal size. Pancreas: Normal size without evidence of mass surrounding inflammation or ductal dilation. Adrenals: Unremarkable Kidneys: Small bilateral renal cysts. No follow-up is recommended. No evidence of hydronephrosis or nephrolithiasis. Bladder: Unremarkable Reproductive Organs: Unremarkable Bowel: Evaluation of the bowel loops are limited due to lack of oral contrast. Stomach appears grossly unremarkable. Fluid-filled portions of the small bowel, particularly distal small bowel within the right lower quadrant, no dilatation no wall thickening or adjacent stranding. Differentials would include ileus versus enteritis. Large bowel is grossly unremarkable. Appendix: Unremarkable Lymph nodes: No lymphadenopathy. Vasculature: Mild diffuse atherosclerotic calcifications are noted. Peritoneum / Retroperitoneum: Unremarkable Bones: Slight anterolisthesis of L3 on L4. CT/Abdomen/Pelvis W IV Cont ONLY IMPRESSION: Fluid-filled portions of the small bowel, no dilatation or wall thickening, may represent ileus versus enteritis. OVERALL FINAL ASSESSMENT: . LI-RADS is not meant to be used in patients <18 years or patients with cirrhosis due to congenital hepatic fibrosis or due to vascular disorders, because these patients have a lower chance of developing HCC. Reading Location: [facility] CC: Dr. Heath Dixon, DO; No Primary Care Physician Distribution Operation Supervisor: Signed Normal [facility] Absolute lymphocyte countOrd ered By: Heath Dixon on 01-14-2025 Lymphocytes Auto (Unsp spec) [#/Vol] 3.07 10*3/uL 0.83-4.51 [facility] Absolute neutrophil countOrd ered By: Heath Dixon on 01-14-2025 Neutrophils (Bld) [#/Vol] 10.1 10*3/uL High 2.0-7.7 [facility] Anion gap in Serum or Plasma Ordered By: Heath Dixon on 01-14-2025 Anion gap [Moles/Vol] 12 mmol/L 5-15 [facility] Automated lymphocyte count a s percentage of total leukocytesOrdered By: Heath Dixon on 01-14-2025 Lymphocytes/100 WBC Auto (Unsp spec) 21.9 % [facility] BUN/creatinine ratioOrdered By: Heath Dixon on 01-14-2025 Urea nitrogen/Creatinine [Mass ratio] 10.1 mg/mg 10- [facility] Basic Metabolic Profile (BMP )on 01-14-2025 BUN/CRE 10.1 RATIO Normal 06-08 [facility] Comment on above: Performed By: #### L 501.5200, L501.2450, L500.3400, L500.2500, L100.0100 #### [facility] Laboratory [address] [place], [address] Calcium [Mass/Vol] 9.3 mg/dL Normal 7.6-11.0 [facility] Comment on above: Performed By: #### L 501.5200, L501.2450, L500.3400, L500.2500, L100.0100 #### [facility] [address] [place], [address] Chloride [Moles/Vol] 103 mmol/L Normal 98-108 [place] Comment on above: Performed By: #### L 501.5200, L501.2450, L500.3400, L500.2500, L100.0100 #### [facility] [address] [place], [address] CO2 [Moles/Vol] 22.2 mmol/L Normal 21.0-32.0 [facility] Comment on above: Performed By: #### L 501.5200, L501.2450, L500.3400, L500.2500, L100.0100 #### [facility] [address] [place], [address] Creatinine [Mass/Vol] 1.04 mg/dL Normal 0.70-1.20 [facility] Comment on above: Performed By: #### L 501.5200, L501.2450, L500.3400, L500.2500, L100.0100 #### [facility] [address] [place], [address] ECRCL 91.64 ml/min Normal 50-250 [facility] Comment on above: Performed By: #### L 501.5200, L501.2450, L500.3400, L500.2500, L100.0100 #### [facility] [address] [place], [address] GAP 12 Normal 5-15 [facility] Comment on above: Performed By: #### L 501.5200, L501.2450, L500.3400, L500.2500, L100.0100 #### [facility] [address] [place], [address] GFR/1.73 sq M.predicted among non-blacks MDRD (S/P/Bld) [Vol rate/Area] 90 mL/min/{1.73_m2} Normal >60 [facility] Comment on above: Result Comment: mL/m in/1.73m2 CKD-EPI Creatinine Equation (2020) Performed By: #### L 501.5200, L501.2450, L500.3400, L500.2500, L100.0100 #### [facility] [address] [place], [address] Glucose [Mass/Vol] 92 mg/dL Normal 70-99 [facility] Comment on above: Performed By: #### L 501.5200, L501.2450, L500.3400, L500.2500, L100.0100 #### [facility] [address] [place], [address] Potassium [Moles/Vol] 3.7 mmol/L Normal 3.3-5.1 [facility] Comment on above: Performed By: #### L 501.5200, L501.2450, L500.3400, L500.2500, L100.0100 #### [facility] [address] [place], [address] Sodium [Moles/Vol] 137 mmol/L Normal 133-145 [facility] Comment on above: Performed By: #### L 501.5200, L501.2450, L500.3400, L500.2500, L100.0100 #### [facility] [address] [place], [address] Urea nitrogen [Mass/Vol] 11 mg/dL Normal 4-19 [facility] Comment on above: Performed By: #### L 501.5200, L501.2450, L500.3400, L500.2500, L100.0100 #### [facility] [address] [place], [address] Basophil percentageOrdered B y: Heath Dixon on 01-14-2025 Basophils/100 WBC (Bld) 0.4 % 0-1 [facility] Bedside Glucoseon 01-14-2025 FINGERSTICK GLU 92 mg/dL Normal 74-106 [facility] Comment on above: Result Comment: KYLE WHITFIELD OF PATIENT CARE PER NURSING PROTOCOL Performed By: #### L 501.080 #### [facility] [address] [place], [place], [address] Bilirubin Test strip Ql (U)O rdered By: Heath Dixon on 01-14-2025 Bilirubin Ql (U) Negative Negative [facility] Bilirubin directOrdered By: Heath Dixon on 01-14-2025 Bilirubin.direct [Mass/Vol] 0.21 mg/dL 0.00-0.30 [facility] Bilirubin, totalOrdered By: Heath Dixon on 01-14-2025 Bilirubin [Mass/Vol] 0.50 mg/dL 0.00-1.30 [place] Brain/Head without Contrasto n 01-14-2025 Brain/Head without Contrast [facility] Imaging Services [address] [place] [address] Brain/Head without Contrast MR#: [id number] Acct: [id number] Name: NELLIE TERRY Rep #: [id number] : 1980 M 44 From: Rachel Raya DO PCP: Care Physician,No Primary Status: REG ER Study: Brain/Head without Contrast Date of Exam: 12/19 04/13 Exam# [id number] Ordering Dr: Heath Dixon DO PROCEDURE: BRAIN/HEAD WITHOUT CONTRAST 01/14/2025 REASON FOR EXAM: DIZZINESS NAUSEA TECHNIQUE: Head CT without intravenous contrast. Coronal and Sagittal reconstruction series were provided. One or more dose reduction techniques were used (e.g., Automated exposure control, adjustment of the mA and/or kV according to patient size, use of iterative reconstruction technique. RADIATION DOSE SUMMARY: CTDlvol: 47 mGy DLP: 1049 mGycm COMPARISON: None FINDINGS: Brain: Within normal limits for age CSF Spaces: Normal Sinuses/Mastoids: Clear at visualized levels Bones: Unremarkable CT/Brain/Head without Contrast IMPRESSION: NO ACUTE FINDINGS Reading Location: [facility] CC: Dr. Heath Dixon DO; No Primary Care Physician Distribution Operation Supervisor: Signed Normal [facility] CBC W/Diff, Automatedon 12-19 Absolute Lymph 3.07 X10 3/uL Normal 0.83-4.51 [facility] Comment on above: Performed By: #### L 501.5200, L501.2450, L500.3400, L500.2500, L100.0100 #### [facility] [address] [place], [address] Absolute Neut 10.1 X10 3/uL High 2.0-7.7 [facility] Comment on above: Performed By: #### L 501.5200, L501.2450, L500.3400, L500.2500, L100.0100 #### [facility] [address] [place], [address] Basophils/100 WBC (Bld) 0.4 % Normal 0-1 [facility] Comment on above: Performed By: #### L 501.5200, L501.2450, L500.3400, L500.2500, L100.0100 #### [facility] [address] [place], [address] Eosinophils/100 WBC (Bld) 0.6 % Normal 0-5 [facility] Comment on above: Performed By: #### L 501.5200, L501.2450, L500.3400, L500.2500, L100.0100 #### [facility] [address] [place], [address] Erythrocyte distribution width (RBC) [Ratio] 12.6 % Normal 11.6-14.6 [facility] Comment on above: Performed By: #### L 501.5200, L501.2450, L500.3400, L500.2500, L100.0100 #### [facility] [address] [place], [address] Hematocrit (Bld) [Volume fraction] 41.3 % Normal 40-54 [facility] Comment on above: Performed By: #### L 501.5200, L501.2450, L500.3400, L500.2500, L100.0100 #### [facility] [address] [place], [address] Hemoglobin (Bld) [Mass/Vol] 14.0 g/dL Normal 13.0-16.5 [facility] Comment on above: Performed By: #### L 501.5200, L501.2450, L500.3400, L500.2500, L100.0100 #### [facility] [address] [place], [address] IG% 0.400 Normal 0.0-0.9 [facility] Comment on above: Result Comment: IG% - Immature Granulocytes (promyelocytes, myelocytes and metamyelocytes) > 1% indicates that a LEFT SHIFT is Present. Performed By: #### L 501.5200, L501.2450, L500.3400, L500.2500, L100.0100 #### [facility] [address] [place], [address] Lymphocytes/100 WBC (Bld) 21.9 % Normal 19-41 [facility] Comment on above: Performed By: #### L 501.5200, L501.2450, L500.3400, L500.2500, L100.0100 #### [facility] [address] [place], [address] MCH (RBC) [Entitic mass] 30.6 pg Normal 27.0-32.0 [facility] Comment on above: Performed By: #### L 501.5200, L501.2450, L500.3400, L500.2500, L100.0100 #### [facility] [address] [place], [address] MCHC (RBC) [Mass/Vol] 33.9 g/dL Normal 32-36 [facility] Comment on above: Performed By: #### L 501.5200, L501.2450, L500.3400, L500.2500, L100.0100 #### [facility] [address] [place], [address] MCV (RBC) [Entitic vol] 90.2 fL Normal 80-94 [facility] Comment on above: Performed By: #### L 501.5200, L501.2450, L500.3400, L500.2500, L100.0100 #### [facility] [address] [place], [address] Monocytes/100 WBC (Bld) 4.9 % Normal 0-10 [facility] Comment on above: Performed By: #### L 501.5200, L501.2450, L500.3400, L500.2500, L100.0100 #### [facility] [address] [place], [address] Neutrophils/100 WBC (Bld) 71.8 % High 47-70 [facility] Comment on above: Performed By: #### L 501.5200, L501.2450, L500.3400, L500.2500, L100.0100 #### [facility] [address] [place], [address] Nucleated RBC (Bld) [#/Vol] 0 10*3/uL Normal 0-5 [facility] Comment on above: Performed By: #### L 501.5200, L501.2450, L500.3400, L500.2500, L100.0100 #### [facility] [address] [place], [address] Platelet mean volume (Bld) [Entitic vol] 10.5 fL Normal 6.2-12.0 [facility] Comment on above: Performed By: #### L 501.5200, L501.2450, L500.3400, L500.2500, L100.0100 #### [facility] [address] [place], [address] Platelets (Bld) [#/Vol] 289 10*3/uL Normal 150-450 [facility] Comment on above: Performed By: #### L 501.5200, L501.2450, L500.3400, L500.2500, L100.0100 #### [facility] [address] [place], [address] RBC (Bld) [#/Vol] 4.58 10*6/uL Low 4.6-6.2 [facility] Comment on above: Performed By: #### L 501.5200, L501.2450, L500.3400, L500.2500, L100.0100 #### [facility] [address] [place], [address] RDW SD 41.7 fl Normal 35.1-43.9 [facility] Comment on above: Performed By: #### L 501.5200, L501.2450, L500.3400, L500.2500, L100.0100 #### [facility] [address] [place], [address] WBC (Bld) [#/Vol] 14.0 10*3/uL High 4.4-11.0 [facility] Comment on above: Performed By: #### L 501.5200, L501.2450, L500.3400, L500.2500, L100.0100 #### [facility] [address] [place], [address] Carbon dioxide, total [Moles /volume] in Central venous bloodOrdered By: Heath Dixon on 01-14-2025 CO2 [Moles/Vol] 22.2 mmol/L 21.0-32.0 [facility] Chest 1 View (Portable)on Chest 1 View (Portable) [facility] Imaging Services [address] [place] [address] Chest 1 View (Portable) MR#: [id number] Acct: [id number] Name: NELLIE TERRY Rep #: [id number] : 1980 M 44 From: Dimitri perkins MD PCP: Care Physician,No Primary Status: REG ER Study: Chest 1 View (Portable) Date of Exam: 01/14/25 Exam# [id number] Ordering Dr: Heath Dixon DO PROCEDURE: CHEST 1 VIEW (PORTABLE) 01/14/2025 REASON FOR EXAM: DYSPNEA Confusion. TECHNIQUE: Frontal view of the chest. COMPARISON: None FINDINGS: Hardware: EKG electrodes are seen. Heart: Cardiac and mediastinal contours are stable. Lungs: No significant change in the appearance of the lungs. Bones: The bones are unremarkable. Other: RAD/Chest 1 View (Portable) IMPRESSION: No Acute Findings. Reading Location: [facility] CC: Dr. Heath Dixon, DO; No Primary Care Physician Distribution Operation Supervisor: Signed Normal [facility] Chloride assayOrdered By: Guanako Dixon on 01-14-2025 Chloride [Moles/Vol] 103 mmol/L 98-108 [place] Emergency Department Summary on 01-14-2025 Emergency Department Summary [facility] Medical Records Department [address] [place] [address] Emergency Department Summary 01/14/25 MR#: [id number] Acct: [id number] Name: NELLIE TERRY Rep #: [id number] : 1980 44 From: Heath Dixon DO PCP: Care Physician,No Primary Status:DEP ER Location: ED HPI History of Present Illness Chief Complaint: General Illness Informant: patient Narrative Narrative: 44-year-old male presenting to the emergency room concern for nausea and lightheadedness. Patient states over the past several months he has had intermittent days where he is felt lightheaded when he exerts himself. He states they typically are isolated days. Over the past 3 days he has found that when he exerts himself he feels more lightheaded. He denies chest pain or palpitations. He feels like he is urinating significantly more frequently but he is also been drinking a lot of fluids. He states he cannot seem to quench his thirst. He notes night sweats and some intermittent dyspnea. He notes he is a smoker but is different than normal. He notes about a 15 pound weight loss over the past month. He notes cramping of his bilateral legs. He states he has had fevers ranging from 98 degrees to 100 and he took some ibuprofen this morning. No rashes. He denies any abdominal bloating. He notes some intermittent diarrhea over the past couple months but also has been having normal stools. He does not have a current primary care doctor and is not currently treated for any medical problems. No black or bloody stools. I do see that the patient was seen in 2023 with gastritis. [facility] Medical History Migraines Home Medications ???Medication ???Instructions ???Recorded ???Last Taken ???Type pantoprazole 40 mg tablet,delayed 40 mg PO DAILY #30 tabs 01/14/25 Unknown Rx release (Protonix) Allergy/AdvReac Type Severity Reaction Status Date / Time No Known Allergies Allergy Verified 01/14/25 13:51 Family History Mother Hypertension Heart problem Arthritis Surgical History History of left knee surgery Social History Smoking Status: Current every day smoker tobacco type: cigarettes alcohol intake: current alcohol intake frequency: a few times a month ROS ROS ED Constitutional Constitutional ED: Reports chills, fever(s), sweats and weight loss Eyes Eyes: Denies change in vision or diplopia ENT ENT ED: Denies ear pain, rhinorrhea or sore throat Cardiovascular Cardiovascular: Reports other Details: Lightheadedness ; Denies chest pain, orthopnea, palpitations or racing heartbeat Respiratory/Chest Respiratory/Chest: Reports dyspnea; Denies cough or orthopnea Gastrointestinal Gastrointestinal: Reports diarrhea and nausea; Denies abdominal pain or vomiting Genitourinary Genitourinary ED: Reports urinary frequency; Denies dysuria or hematuria Musculoskeletal Musculoskeletal: Denies arthralgias or myalgias Integumentary Denies abscess or rash Neurologic Neurologic: Denies headache(s) or weakness Psychiatric Psychiatric: Denies anxiety, depression, suicidal ideation or suicidal thoughts Endocrine Endocrinology: Reports polydipsia and polyuria; Denies polyphagia Allergic/Immunologic Allergic/Immunologic ED: Denies mouth swelling, tongue swelling or urticaria EXAM Physical Exam Const Vital Signs: 01/14/25 13:51 01/14/25 13:59 01/14/25 15:51 Temperature 98.7 F Temperature Source Oral Pulse Rate 87 76 Respiratory Rate 18 15 Respiratory Effort Normal Respiratory Pattern Normal Blood Pressure 146/107 H 149/97 H Blood Pressure Mean 120 114 Pulse Ox 97 98 Oxygen Delivery Method Room Air Room Air 01/14/25 16:36 01/14/25 16:45 01/14/25 17:00 Temperature Temperature Source Pulse Rate 91 76 83 Respiratory Rate 17 17 22 H Respiratory Effort Respiratory Pattern Blood Pressure Blood Pressure Mean Pulse Ox Oxygen Delivery Method 01/14/25 17:15 Temperature Temperature Source Pulse Rate 91 Respiratory Rate 21 H Respiratory Effort Respiratory Pattern Blood Pressure 134/87 H Blood Pressure Mean 102 Pulse Ox 100 Oxygen Delivery Method Room Air MDM MDM MDM Narrative Medical decision making narrative: Differential diagnosis includes but not limited to cardiac dysrhythmia electrolyte abnormality hyperglycemia acute kidney injury UTI malignancy dehydration anemia My independent interpretation of the chest x-ray is no acute process. EKG is a normal sinus rhythm at a rate of 87 bpm. Accu-Chek is 92. White blood cell count is (more content not included)... Normal [facility] Eosinophil percentageOrdered By: Heath Dixon on 01-14-2025 Eosinophils/100 WBC (Bld) 0.6 % 0-5 [facility] Erythrocyte distribution wid th ratioOrdered By: Heath Dixon on 01-14-2025 Erythrocyte distribution width (RBC) [Ratio] 12.6 % 11.6-14.6 [facility] Erythrocyte distribution wid th standard deviationOrdered By: Heath Dixon on 01-14-2025 Erythrocyte distribution width (RBC) [Ratio] 41.7 fl 35.1-43.9 [facility] Glomerular filtration rate ( GFR) estimation/1.73 sq m using serum, plasma, or whole bOrdered By: Heath Dixon on 01-14-2025 GFR/1.73 sq M.predicted among non-blacks MDRD (S/P/Bld) [Vol rate/Area] 90 mL/min/{1.73_m2} >60 [facility] Comment on above: mL/min/1.73m2 CKD-EP I Creatinine Equation (2020) Glucose measurement at bedsi deOrdered By: Heath Dixon on 01-14-2025 Glucose [Mass/Vol] 92 mg/dL 74-106 [facility] Comment on above: MANAGEMENT OF PATIEN T CARE PER NURSING PROTOCOL Hematocrit Auto (Bld) [Volum e fraction]Ordered By: Heath Dixon on 01-14-2025 Hematocrit (Bld) [Volume fraction] 41.3 % 40-54 [facility] Hemoglobin measurementOrdere d By: Heath Dixon on 01-14-2025 Hemoglobin (Bld) [Mass/Vol] 14.0 g/dL 13.0-16.5 [facility] Immature granulocytes/100 WB C Auto (Bld)Ordered By: Heath Dixon on 01-14-2025 Immature granulocytes/100 WBC (Bld) 0.400 % 0.0-0.9 [facility] Comment on above: IG% - Immature Granu locytes (promyelocytes, myelocytes and metamyelocytes) > 1% indicates that a LEFT SHIFT is Present. Ketones Test strip Ql (U)Ord ered By: Heath Dixon on 01-14-2025 Ketones Ql (U) Negative Negative [facility] Laboratory - Chemistry and C hemistry - challengeOrdered By: Heath Dixon on 01-14-2025 AST [Catalytic activity/Vol] 21 U/L <38 [facility] Lipaseon 01-14-2025 Lipase [Catalytic activity/Vol] 32 U/L Normal 13-75 [facility] Comment on above: Result Comment: Plelove graham note: LIPASE revised reference range effective 22. New Lipase methodology. Expected to produce lower values than the previous assay method. NEW Reference Range: 13 - 75 U/L Performed By: #### L 501.5200, L501.2450, L500.3400, L500.2500, L100.0100 ####[facility] [address] [place], [address] Lipase measurementOrdered By : Heath Dixon on 01-14-2025 Lipase [Catalytic activity/Vol] 32 U/L 13-75 [facility] Comment on above: Please note:LIPASE r evised reference range effective 22. New Lipase methodology. Expected to produce lower values than the previous assay method. NEW Reference Range: 13 - 75 U/L Liver Profileon 01-14-2025 Albumin [Mass/Vol] 4.4 g/dL Normal 3.5-5.0 [facility] Comment on above: Performed By: #### L 501.5200, L501.2450, L500.3400, L500.2500, L100.0100 #### [facility] Laboratory [address] [place], [address] ALK PHOS 56 U/L Normal 40-129 [facility] Comment on above: Performed By: #### L 501.5200, L501.2450, L500.3400, L500.2500, L100.0100 #### [facility] [address] [place], [address] ALT [Catalytic activity/Vol] 15 U/L Normal <=46 [facility] Comment on above: Performed By: #### L 501.5200, L501.2450, L500.3400, L500.2500, L100.0100 #### [facility] [address] [place], [address] AST [Catalytic activity/Vol] 21 U/L Normal <=37 [facility] Comment on above: Performed By: #### L 501.5200, L501.2450, L500.3400, L500.2500, L100.0100 #### [facility] [address] [place], [address] Bilirubin [Mass/Vol] 0.50 mg/dL Normal 0.00-1.30 [place] Comment on above: Performed By: #### L 501.5200, L501.2450, L500.3400, L500.2500, L100.0100 #### [facility] [address] [place], [address] Bilirubin.direct [Mass/Vol] 0.21 mg/dL Normal 0.00-0.30 [facility] Comment on above: Performed By: #### L 501.5200, L501.2450, L500.3400, L500.2500, L100.0100 #### [facility] [address] [place], [address] Globulin (S) [Mass/Vol] 2.6 g/dL Normal 2.2-4.2 [facility] Comment on above: Performed By: #### L 501.5200, L501.2450, L500.3400, L500.2500, L100.0100 #### [facility] [address] [place], [address] T PROT 7.0 g/dL Normal 5.9-8.4 [facility] Comment on above: Performed By: #### L 501.5200, L501.2450, L500.3400, L500.2500, L100.0100 #### [facility] [address] [place], [address] MCV (mean corpuscular volume ) determinationOrdered By: Heath Dixon on 01-14-2025 MCV (RBC) [Entitic vol] 90.2 fL 80-94 [facility] Magnesiumon 01-14-2025 Magnesium [Mass/Vol] 2.0 mg/dL Normal 1.5-2.2 [place] Comment on above: Performed By: #### L 501.5200, L501.2450, L500.3400, L500.2500, L100.0100 ####[facility] [address] [place], [address] Magnesium measurement (mass/ volume)Ordered By: Heath Dixon on 01-14-2025 Magnesium (Unsp spec) [Mass/Vol] 2.0 mg/dL 1.5-2.2 [facility] Mean corpuscular hemoglobin (MCH) determinationOrdered By: Heath Dixon on 01-14-2025 MCH (RBC) [Entitic mass] 30.6 pg 27.0-32.0 [facility] Mean corpuscular hemoglobin concentration (MCHC) determinationOrdered By: Heath Dixon on 01-14-2025 MCHC (RBC) [Mass/Vol] 33.9 g/dL 32-36 [facility] Mean platelet volume determi nationOrdered By: Heath Dixon on 01-14-2025 Platelet mean volume (Bld) [Entitic vol] 10.5 fL 6.2-12.0 [facility] Microscopic analysis of urin e for red blood cells (RBC)Ordered By: Heath Dixon on 01-14-2025 Microscopic analysis of urine for red blood cells (RBC) 0-5 SEEN /hpf 0-5 [facility] Monocyte percentageOrdered B y: Heath Dixon on 01-14-2025 Monocytes/100 WBC (Bld) 4.9 % 0-10 [facility] Mucus LM Ql (Urine sed)Order ed By: Heath Dixon on 01-14-2025 Mucus Ql (Urine sed) 0 SEEN /hpf [facility] Neutrophil percentageOrdered By: Heath Dixon on 01-14-2025 Neutrophils/100 WBC (Bld) 71.8 % High 47-70 [facility] Nitrite Test strip Ql (U)Ord ered By: Heath Dixon on 01-14-2025 Nitrite Ql (U) Negative Negative [facility] Nucleated red blood cell per centageOrdered By: Heath Dixon on 01-14-2025 Nucleated RBC/100 WBC (Bld) [Ratio] 0 % 0-5 [facility] Platelet countOrdered By: Guanako Dixon on 01-14-2025 Platelets (Bld) [#/Vol] 289 10*3/uL 150-450 [facility] Potassium measurement (mass/ volume)Ordered By: Heath Dixon on 01-14-2025 Potassium (Unsp spec) [Mass/Vol] 3.7 mmol/L 3.3-5.1 [facility] Protein Test strip Ql (U)Ord ered By: Heath Dixon on 01-14-2025 Protein Ql (U) Negative Negative [facility] RBC Auto (Bld) [#/Vol]Ordere d By: Heath Dixon on 01-14-2025 RBC (Bld) [#/Vol] 4.58 10*6/uL Low 4.6-6.2 [facility] Serum creatinine measurement (mass/volume)Ordered By: Heath Dixon on 01-14-2025 Creatinine [Mass/Vol] 1.04 mg/dL 0.70-1.20 [facility] Serum globulin measurementOr dered By: Heath Dixon on 01-14-2025 Globulin (S) [Mass/Vol] 2.6 g/dL 2.2-4.2 [facility] Serum glucose measurement (m ass/volume)Ordered By: Heath Dixon on 01-14-2025 Glucose [Mass/Vol] 92 mg/dL 70-99 [facility] Serum or plasma alanine hickey otransferase (ALT) measurementOrdered By: Heath Dixon on 01-14-2025 ALT [Catalytic activity/Vol] 15 U/L <47 [facility] Serum or plasma albumin lico urement (mass/volume)Ordered By: Heath Dixon on 01-14-2025 Albumin [Mass/Vol] 4.4 g/dL 3.5-5.0 [facility] Serum or plasma alkaline sindi sphatase measurementOrdered By: Heath Dixon on 01-14-2025 ALP [Catalytic activity/Vol] 56 U/L 40-129 [facility] Serum or plasma calcium lico urement (mass/volume)Ordered By: Heath Dixon on 01-14-2025 Calcium [Mass/Vol] 9.3 mg/dL 7.6-11.0 [facility] Serum or plasma urea nitroge n measurement (mass/volume)Ordered By: Heath Dixon on 01-14-2025 Urea nitrogen [Mass/Vol] 11 mg/dL 4-19 [facility] Sodium levelOrdered By: Mj Dixon on 01-14-2025 Sodium [Moles/Vol] 137 mmol/L 133-145 [facility] Squamous epithelial cells de tection in urine sediment by light microscopyOrdered By: Heath Dixon on 01-14-2025 Epithelial cells.squamous LM Ql (Urine sed) 0 SEEN /hpf 0-5 [facility] Total proteinOrdered By: Carlos Dixon on 01-14-2025 Protein [Mass/Vol] 7.0 g/dL 5.9-8.4 [facility] Urinalysis, Completeon 01-14 RBC 0-5 SEEN Normal 0-5 [facility] Comment on above: Order Comment: CLEAN CATCH Performed By: #### L 400.0001 ####[facility] [address] [place], [address] BACTERIA 0 SEEN Normal None Seen [facility] Comment on above: Order Comment: CLEAN CATCH Performed By: #### L 400.0001 ####[facility] [address] [place], [address] EPI,SQUAMOUS 0 SEEN Normal 0-5 [facility] Comment on above: Order Comment: CLEAN CATCH Performed By: #### L 400.0001 ####[facility] [address] [place], [address] Mucus Ql (Urine sed) 0 SEEN Normal [facility] Comment on above: Order Comment: CLEAN CATCH Performed By: #### L 400.0001 ####[facility] [address] [place], [address] WBC 0 SEEN Normal 0-5 [facility] Comment on above: Order Comment: CLEAN CATCH Performed By: #### L 400.0001 ####[facility] [address] [place], [address] Urine clarityOrdered By: Carlos Dixon on 01-14-2025 Clarity (U) Clear Clear [facility] Urine color determinationOrd ered By: Heath Dixon on 01-14-2025 Color (U) Straw Yellow [facility] Urine glucose detectionOrder ed By: Heath Dixon on 01-14-2025 Glucose Ql (U) Normal mg/dl Normal [facility] Urine leukocyte esterase det ection by dipstickOrdered By: Heath Dixon on 01-14-2025 Leukocyte esterase Test strip Ql (U) Negative Negative [facility] Urine pHOrdered By: Heath thomason on 01-14-2025 pH (U) 6.5 [pH] 5.0 - 8.0 [facility] Urine sediment bacteria coun t by microscopy (number/high power field)Ordered By: Heath Dixon on 01-14-2025 Bacteria LM.HPF (Urine sed) [#/Area] 0 /[HPF] None Seen [facility] Urine specific gravity measu rementOrdered By: Heath Dixon on 01-14-2025 Specific gravity (U) [Rel density] 1.005 1.002-1.030 [facility] Urine urobilinogen measureme ntOrdered By: Heath Dixon on 01-14-2025 Urobilinogen Ql (U) Normal mg/dl Normal [facility] White blood cell (WBC) count Ordered By: Heath Dixon on 01-14-2025 WBC (Bld) [#/Vol] 14.0 10*3/uL High 4.4-11.0 [facility] White blood cell countOrdere d By: Heath Dixon on 01-14-2025 White blood cell count 0 SEEN /hpf 0-5 [facility] 12 Lead EKGon 06-12-2024 12 Lead EKG [facility] Cardiovascular Services [address] [place] [address] 12 Lead EKG 06/12/24 1648 MR#: [id number] Acct: [id number] Name: NELLIE TERRY Rep #: [id number] : 1980 43 From: Alistair Morrison MD Attending Dr: Status: DEP ER Ordering Dr: Bon Bruce MD Date: 06/12/24 Location: ED Sex: M C Admitted: Test Reason : Blood Pressure : / mmHG Vent. Rate : 065 BPM Atrial Rate : 065 BPM P-R Int : 140 ms QRS Dur : 086 ms QT Int : 414 ms P-R-T Axes : 067 052 047 degrees QTc Int : 430 ms Normal sinus rhythm Normal ECG Confirmed by ALISTAIR MORRISON MD ([id number]), multimedia editor SOLEDAD FARMER ([id number]) on 06/13/2024 9:58:38 AM Referred By: Confirmed By:ALISTAIR MORRISON MD 06/13/24 0958 Date Alistair Morrison MD CC: Dr. Bon Bruce MD; No Primary Care Physician Signed Normal [facility] CBC W/Diff, Automatedon 10-2 -2023 Absolute Lymph 3.53 X10 3/uL Normal 0.83-4.51 [facility] Comment on above: Performed By: #### L 501.4020, L100.0100, L500.4050, L501.2450 ####[facility] [address] [place], [address] Absolute Neut 7.1 X10 3/uL Normal 2.0-7.7 [facility] Comment on above: Performed By: #### L 501.4020, L100.0100, L500.4050, L501.2450 ####[facility] [address] [place], [address] Basophils/100 WBC (Bld) 0.4 % Normal 0-1 [facility] Comment on above: Performed By: #### L 501.4020, L100.0100, L500.4050, L501.2450 ####[facility] [address] [place], [address] Eosinophils/100 WBC (Bld) 1.6 % Normal 0-5 [facility] Comment on above: Performed By: #### L 501.4020, L100.0100, L500.4050, L501.2450 ####[facility] [address] [place], [address] IG% 0.300 Normal 0.0-0.9 [facility] Comment on above: Result Comment: IG% - Immature Granulocytes (promyelocytes, myelocytes and metamyelocytes) > 1% indicates that a LEFT SHIFT is Present. Performed By: #### L 501.4020, L100.0100, L500.4050, L501.2450 ####[facility] [address] [place], [address] Monocytes/100 WBC (Bld) 5.4 % Normal 0-10 [facility] Comment on above: Performed By: #### L 501.4020, L100.0100, L500.4050, L501.2450 ####[facility] [address] [place], [address] Nucleated RBC (Bld) [#/Vol] 0 10*3/uL Normal 0-5 [facility] Comment on above: Performed By: #### L 501.4020, L100.0100, L500.4050, L501.2450 ####[facility] [address] [place], [address] Erythrocyte distribution width (RBC) [Ratio] 12.5 % Normal 11.6-14.6 [facility] Comment on above: Performed By: #### L 501.4020, L100.0100, L500.4050, L501.2450 ####[facility] [address] [place], [address] Hematocrit (Bld) [Volume fraction] 41.4 % Normal 40-54 [facility] Comment on above: Performed By: #### L 501.4020, L100.0100, L500.4050, L501.2450 ####[facility] [address] [place], [address] Hemoglobin (Bld) [Mass/Vol] 13.9 g/dL Normal 13.0-16.5 [facility] Comment on above: Performed By: #### L 501.4020, L100.0100, L500.4050, L501.2450 ####[facility] [address] [place], [address] Lymphocytes/100 WBC (Bld) 30.7 % Normal 19-41 [facility] Comment on above: Performed By: #### L 501.4020, L100.0100, L500.4050, L501.2450 ####[facility] [address] [place], [address] MCH (RBC) [Entitic mass] 29.7 pg Normal 27.0-32.0 [facility] Comment on above: Performed By: #### L 501.4020, L100.0100, L500.4050, L501.2450 ####[facility] [address] [place], [address] MCHC (RBC) [Mass/Vol] 33.6 g/dL Normal 32-36 [facility] Comment on above: Performed By: #### L 501.4020, L100.0100, L500.4050, L501.2450 ####[facility] [address] [place], [address] MCV (RBC) [Entitic vol] 88.5 fL Normal 80-94 [facility] Comment on above: Performed By: #### L 501.4020, L100.0100, L500.4050, L501.2450 ####[facility] [address] [place], [address] Neutrophils/100 WBC (Bld) 61.6 % Normal 47-70 [facility] Comment on above: Performed By: #### L 501.4020, L100.0100, L500.4050, L501.2450 ####[facility] [address] [place], [address] Platelet mean volume (Bld) [Entitic vol] 10.4 fL Normal 6.2-12.0 [facility] Comment on above: Performed By: #### L 501.4020, L100.0100, L500.4050, L501.2450 ####[facility] [address] [place], [address] Platelets (Bld) [#/Vol] 279 10*3/uL Normal 150-450 [facility] Comment on above: Performed By: #### L 501.4020, L100.0100, L500.4050, L501.2450 ####[facility] [address] [place], [address] RBC (Bld) [#/Vol] 4.68 10*6/uL Normal 4.6-6.2 [facility] Comment on above: Performed By: #### L 501.4020, L100.0100, L500.4050, L501.2450 ####[facility] [address] [place], [address] RDW SD 40.8 fl Normal 35.1-43.9 [facility] Comment on above: Performed By: #### L 501.4020, L100.0100, L500.4050, L501.2450 ####[facility] [address] [place], [address] WBC (Bld) [#/Vol] 11.5 10*3/uL High 4.4-11.0 [facility] Comment on above: Performed By: #### L 501.4020, L100.0100, L500.4050, L501.2450 ####[facility] [address] [place], [address] CNOVon 06-12-2024 CNOV Office Visit (UCWSTR ) NELLIE TERRY ([id number]) 1980 M Date Time Provider Department 06/12/24 1:45 PM ADENIKE OLIVER [facility] [place] During your visit today, we recorded the following information about you: Temperature Pulse Respiration Blood pressure 97.5 degrees 96/minute 18/minute 147/105 Weight 81.8 kg Adenike Oliver APRN.CNP 06/12/2024 2:20 PM Signed Triage Nellie Terry is a 43 year old male. Who presents today with chest pain shortness of breath stomachache and irregular breathing. Patient states that he had sharp midsternal chest pain today that lasted about 10 to 15 minutes the pain would come and go during this time he would become very short of breath. He also had epigastric pain during this time. He has had a little bit of cough over the last 4 days but this pain is different. In our triage process patient's blood pressure is elevated at 147/105. This is significantly elevated from his prior blood pressure of 128/84. Patient's is sitting at bedside she states that she wanted him to go to the emergency department. At this time I have agreed with her that he will need a full evaluation and have encouraged them to go to the emergency department. I have offered an ambulance and they have declined they would like to go to [facility] HPI PAST MEDICAL HISTORY Diagnosis Date NEGATIVE MEDICAL HISTORY No family history on file. Social History Tobacco Use Smoking status: Every Day Types: Cigarettes Smokeless tobacco: Never ALLERGIES No Known Allergies No current outpatient medications on file. No current facility-administered medications for this visit. OBJECTIVE: BP 147/105 Pulse 96 Temp 36.4 ?C (97.5 ?F) Resp 18 Wt 81.8 kg (180 lb 5.4 oz) SpO2 100% ROS all other systems reviewed and are negative ASSESSMENT/PLAN: 1. Chest pain, unspecified type - ICD9: 786.50, ICD10: R07.9 Aednike Oliver APRN.CNP Referring Provider: SELF [200] Allergies As of Date: 06/12/2024 (No Known Allergies) Date Reviewed: 06/12/2024 Reviewed by: Karlene Huerta MA - Fully Assessed Reason for Visit: Cough [28] Cmt: Chest pains intermittent, stomach pain with eating, SOB x5 days Primary Visit Diagnosis:Chest pain, unspecified type [R07.9] Problem List As Of Date: 06/12/2024 (None) Level of Service: OFFICE/OUTPATIENT ESTABLISHED LOW [facility] 20 MIN [12240] LOS History for Encounter Encounter Status:Closed by ADENIKE OLIVER on 06/12/24 Normal [facility] Chest 1 View (Portable)on Chest 1 View (Portable) [facility] Imaging Services [address] [place], [place] [address] Chest 1 View (Portable) MR#: [id number] Acct: [id number] Name: NELLIE TERRY Rep #: [id number] : 1980 M 43 From: Cr Kim DO PCP: Care Physician,No Primary Status: REG ER Study: Chest 1 View (Portable) Date of Exam: 06/12/24 Exam# [id number] Ordering Dr: Bon Bruce MD [id number] INDICATION: chest pain EXAMINATION/TECHNIQUE : X-RAY - XR Chest 1 View COMPARISON: May 16, 2018 __ FINDINGS: LINES/DEVICES: None. LUNGS: No consolidation, edema or effusion. No pneumothorax. MEDIASTINUM AND CARDIOVASCULAR STRUCTURES: Cardiac silhouette not enlarged. Central airways and mediastinal contour are unremarkable. BONES AND SOFT TISSUES: Unremarkable. RAD/Chest 1 View (Portable) IMPRESSION: No radiographic evidence of acute cardiopulmonary disease. Electronically Signed: Cr Kim DO at 18:18 EDT Reading Location ID and State: [facility] / [place] Tel [phone], Service support , CC: Dr. Bon Bruce MD; No Primary Care Physician Distribution Operation Supervisor: Signed Normal [facility] Comprehensive Metabolic Prof ilon 06-12-2024 Albumin [Mass/Vol] 4.2 g/dL Normal 3.2-5.0 [facility] Comment on above: Order Comment: 'TROP ' Serial specimen #1, #2 or #3: 1 Performed By: #### L 501.4020, L100.0100, L500.4050, L501.2450 ####[facility] [address] [place], [address] Albumin/Globulin [Mass ratio] 1.3 {ratio} Normal 0.9-2.4 [facility] Comment on above: Order Comment: 'TROP ' Serial specimen #1, #2 or #3: 1 Performed By: #### L 501.4020, L100.0100, L500.4050, L501.2450 ####[facility] [address] [place], [address] ALK P 48 U/L Normal 45-117 [facility] Comment on above: Order Comment: 'TROP ' Serial specimen #1, #2 or #3: 1 Performed By: #### L 501.4020, L100.0100, L500.4050, L501.2450 ####[facility] [address] [place], [address] ALT [Catalytic activity/Vol] 22 U/L Normal 16-61 [facility] Comment on above: Order Comment: 'TROP ' Serial specimen #1, #2 or #3: 1 Performed By: #### L 501.4020, L100.0100, L500.4050, L501.2450 ####[facility] [address] [place], [address] AST [Catalytic activity/Vol] 21 U/L Normal 15-37 [facility] Comment on above: Order Comment: 'TROP ' Serial specimen #1, #2 or #3: 1 Performed By: #### L 501.4020, L100.0100, L500.4050, L501.2450 ####[facility] [address] [place], [address] Bilirubin [Mass/Vol] 0.50 mg/dL Normal 0.20-1.00 [facility] Comment on above: Order Comment: 'TROP ' Serial specimen #1, #2 or #3: 1 Result Comment: For patients on eltrombopag therapy, use of Dimension [place] TBIL is not recommended. Performed By: #### L 501.4020, L100.0100, L500.4050, L501.2450 ####[facility] [address] [place], [address] BUN/CRE 11.5 RATIO Normal 10-20 [facility] Comment on above: Order Comment: 'TROP ' Serial specimen #1, #2 or #3: 1 Performed By: #### L 501.4020, L100.0100, L500.4050, L501.2450 ####[facility] [address] [place], [address] CA,Total 9.2 mg/dL Normal 8.5-10.1 [facility] Comment on above: Order Comment: 'TROP ' Serial specimen #1, #2 or #3: 1 Performed By: #### L 501.4020, L100.0100, L500.4050, L501.2450 ####[facility] [address] [place], [address] Chloride [Moles/Vol] 108 mmol/L High 98-107 [place] Comment on above: Order Comment: 'TROP ' Serial specimen #1, #2 or #3: 1 Performed By: #### L 501.4020, L100.0100, L500.4050, L501.2450 ####[facility] [address] [place], [address] CO2 [Moles/Vol] 26.0 mmol/L Normal 21.0-32.0 [facility] Comment on above: Order Comment: 'TROP ' Serial specimen #1, #2 or #3: 1 Performed By: #### L 501.4020, L100.0100, L500.4050, L501.2450 ####[facility] [address] [place], [address] Creatinine [Mass/Vol] 1.04 mg/dL Normal 0.70-1.30 [facility] Comment on above: Order Comment: 'TROP ' Serial specimen #1, #2 or #3: 1 Result Comment: The validity of the calculated GFR GFRAA in patients over 70 years has not been determined. Clinical correlation is essential. Performed By: #### L 501.4020, L100.0100, L500.4050, L501.2450 ####[facility] [address] [place], [address] ECRCL 92.61 ml/min Normal [facility] Comment on above: Order Comment: 'TROP ' Serial specimen #1, #2 or #3: 1 Performed By: #### L 501.4020, L100.0100, L500.4050, L501.2450 ####[facility] [address] [place], [address] EST GFR - AA 99 mL/min Normal >60 [facility] Comment on above: Order Comment: 'TROP ' Serial specimen #1, #2 or #3: 1 Result Comment: Afri can [place] GFR Calc Performed By: #### L 501.4020, L100.0100, L500.4050, L501.2450 ####[facility] [address] [place], [address] GAP 6 Normal 5-15 [facility] Comment on above: Order Comment: 'TROP ' Serial specimen #1, #2 or #3: 1 Performed By: #### L 501.4020, L100.0100, L500.4050, L501.2450 ####[facility] [address] [place], [address] GFR/1.73 sq M.predicted among non-blacks MDRD (S/P/Bld) [Vol rate/Area] 82 mL/min/{1.73_m2} Normal >60 [facility] Comment on above: Order Comment: 'TROP ' Serial specimen #1, #2 or #3: 1 Result Comment: Non- GFR Calc Performed By: #### L 501.4020, L100.0100, L500.4050, L501.2450 ####[facility] [address] [place], [address] Globulin (S) [Mass/Vol] 3.2 g/dL Normal 2.2-4.2 [facility] Comment on above: Order Comment: 'TROP ' Serial specimen #1, #2 or #3: 1 Performed By: #### L 501.4020, L100.0100, L500.4050, L501.2450 ####[facility] [address] [place], [address] Glucose [Mass/Vol] 81 mg/dL Normal 74-106 [facility] Comment on above: Order Comment: 'TROP ' Serial specimen #1, #2 or #3: 1 Performed By: #### L 501.4020, L100.0100, L500.4050, L501.2450 ####[facility] [address] [place], [address] Potassium [Moles/Vol] 3.9 mmol/L Normal 3.5-5.1 [facility] Comment on above: Order Comment: 'TROP ' Serial specimen #1, #2 or #3: 1 Performed By: #### L 501.4020, L100.0100, L500.4050, L501.2450 ####[facility] [address] [place], [address] Sodium [Moles/Vol] 140 mmol/L Normal 136-145 [facility] Comment on above: Order Comment: 'TROP ' Serial specimen #1, #2 or #3: 1 Performed By: #### L 501.4020, L100.0100, L500.4050, L501.2450 ####[facility] [address] [place], [address] T PROT 7.4 g/dL Normal 6.4-8.2 [facility] Comment on above: Order Comment: 'TROP ' Serial specimen #1, #2 or #3: 1 Performed By: #### L 501.4020, L100.0100, L500.4050, L501.2450 ####[facility] [address] [place], [address] Urea nitrogen [Mass/Vol] 12 mg/dL Normal 7-18 [facility] Comment on above: Order Comment: 'TROP ' Serial specimen #1, #2 or #3: 1 Performed By: #### L 501.4020, L100.0100, L500.4050, L501.2450 ####[facility] [address] [place], [address] Emergency Department Summary on 06-12-2024 Emergency Department Summary [facility] Medical Records Department [address] [place] [address] Emergency Department Summary 06/12/24 MR#: [id number] Acct: [id number] Name: NELLIE TERRY Joy Rep #: [id number] : 1980 43 From: Bon Bruce MD PCP: Care Physician,No Primary Status:REG ER Location: ED HPI HPI - GI History of Present Illness Chief Complaint: Chest Other Informant: patient Narrative Narrative: 43-year-old male states he has been having epigastric pain within 20 minutes of swallowing any food regardless of what it is for the past 2 or so weeks. Today he was having it, and pain went up his chest and he felt like he was having some trouble breathing. That is gone now, he still has pain near his xiphoid process but it is milder relatively. This discomfort is been associated with nausea but no vomiting. He has had normal colored bowel movements without any melena or bright red blood. No palpitations or syncopal episodes. He denies any leg pain or swelling or recent long travel or immobilization/hospit alization/surgery recently. He rarely uses alcohol, he had 2 beers last night but it did not make the pain come on or make it worse. He states he does take a lot of ibuprofen, sometimes several times a week due to migraines, as it helps those. He does not see a primary care doctor and accordingly is on no medications chronically. [facility] Medical History (Updated 06/12/24 @ 19:[address] Bon Bruce MD) Migraines Home Medications ???Medication ???Instructions ???Recorded ???Last Taken ???Type meloxicam 15 mg tablet 15 mg PO DAILY PRN Pain #30 tabs 06/12/24 Unknown Rx pantoprazole 40 mg tablet,delayed 40 mg PO DAILY #30 tabs 06/12/24 Unknown Rx release sucralfate 1 gram tablet (Carafate) 1 g PO TID 1 week #21 tabs 06/12/24 Unknown Rx Allergy/AdvReac Type Severity Reaction Status Date / Time No Known Allergies Allergy Verified 06/12/24 14:04 Family History (Updated 01/19/23 @ 08:06 by Winsome Goodman) Mother Hypertension Heart problem Arthritis Surgical History History of left knee surgery Social History (Updated 06/12/24 @ 16:[address] oBn Bruce MD) Smoking Status: Current every day smoker tobacco type: cigarettes alcohol intake: current alcohol intake frequency: a few times a month ROS ROS ED Constitutional Constitutional ED: Denies chills or fever(s) Eyes Eyes: Denies change in vision or diplopia ENT ENT ED: Denies rhinorrhea or sore throat Cardiovascular Cardiovascular: Reports chest pain; Denies palpitations Respiratory/Chest Respiratory/Chest: Reports dyspnea; Denies cough Gastrointestinal Gastrointestinal: Reports abdominal pain and nausea; Denies diarrhea, hematochezia, melena or vomiting Genitourinary Genitourinary ED: Denies dysuria or hematuria Musculoskeletal Musculoskeletal: Denies back pain or neck pain Integumentary Denies abscess or rash Neurologic Neurologic: Denies headache(s), paresthesias or weakness Psychiatric Psychiatric: Denies anxiety or suicidal thoughts EXAM Physical Exam Const Vital Signs: 06/12/24 14:04 06/12/24 15:49 06/12/24 16:55 Temperature 97.6 F L Temperature Source Temporal Pulse Rate 87 77 Respiratory Rate 18 17 Blood Pressure 157/106 H 140/98 H Blood Pressure Mean 123 112 Pulse Ox 100 97 Oxygen Delivery Method Room Air Room Air Room Air 06/12/24 17:00 06/12/24 18:25 Temperature Temperature Source Pulse Rate 67 72 Respiratory Rate 16 20 H Blood Pressure 139/91 H 137/96 H Blood Pressure Mean 107 109 Pulse Ox 98 95 Oxygen Delivery Method Room Air Room Air Positive well nourished and well developed General Appearance ED: well developed and NAD HEENT Reports moist mucous membranes normocephalic and atraumatic Eyes PERRL and EOMs intact bilaterally Neck full ROM and supple Resp normal respiratory effort and clear to auscultation bilaterally Cardio regular rate, regular rhythm and no murmurs GI non-distended GI Narrative: Mild tenderness high epigastric area, otherwise benign abdomen. No pulsatile mass. Normal inspection. Auscultation: normoactive bowel sounds Palpation: soft Back/Spine no CVA tenderness General Back: other FROM Extremity normal to inspection General Extremety ED: Negative for edema, pulses abnormal or tenderness General Extremity: Negative for edema or pulses abnormal Neuro oriented x3, CN's II-XII intact bilaterally and no sensory deficits noted Sensorium / Orientation: awake and alert Motor Exam: strength 5/5 throughout Skin no rashes or lesions noted and no wounds MDM MDM MDM Narrative Medical decision making narrative: I suspect this patient's episode of chest discomfort today (more content not included)... Normal [facility] L501.4020on 06-12-2024 TROPONIN-I HS 3 pg/mL Normal 3.0-78.0 [facility] Comment on above: Order Comment: 'TROP ' Serial specimen #1, #2 or #3: 1 Result Comment: Plea se Note: New Test Units and Gender Specific Reference Ranges. For more information see Policy Stat Procedure [place] High Sensitivity Troponin (TNIH) and attachments. Performed By: #### L 501.4020, L100.0100, L500.4050, L501.2450 ####[facility] [address] [place], [address] Lipaseon 06-12-2024 Lipase [Catalytic activity/Vol] 46 U/L Normal 13-75 [facility] Comment on above: Order Comment: 'TROP ' Serial specimen #1, #2 or #3: 1 Result Comment: Plea se note: LIPASE revised reference range effective 22. New Lipase methodology. Expected to produce lower values than the previous assay method. NEW Reference Range: 13 - 75 U/L Performed By: #### L 501.4020, L100.0100, L500.4050, L501.2450 ####[facility] [address] [place], [address] CNOVon 07-21-2023 CNOV Office Visit (UCWSTR ) NELLIE TERRY ([id number]) 1980 M Date Time Provider Department 07/21/23 2:15 PM TIMBO NICE [facility] [place] During your visit today, we recorded the following information about you: Temperature Pulse Respiration Blood pressure 97.5 degrees 94/minute 16/minute 128/84 Weight 80.7 kg Timbo Nice MD 07/21/2023 2:48 PM Signed Patient presents with: Cough: nasal congestion, drainage, sob x 3 weeks, loss of voice x 1 day HPI: Feeling sick for 3 weeks. Positive symptoms: Cough, Shortness of breath (nasal congestion), Nasal Congestion, Rhinorrhea, Post nasal drainage, hoarse voice, Chest/back soreness, Sinus pressure, occasional diarrhea Negative symptoms: Fever, Chills, Vomiting, OTC: Nyquil, Dayquil No new pets or allergens. PAST MEDICAL HISTORY Diagnosis Date NEGATIVE MEDICAL HISTORY PAST SURGICAL HISTORY Procedure Laterality Date KNEE SURGERY HX Left meniscus MEDICATIONS: No current outpatient medications on file. No current facility-administered medications for this visit. ALLERGIES: ALLERGIES No Known Allergies VITALS: BP 128/84 Pulse 94 Temp 36.4 ?C (97.5 ?F) Resp 16 Wt 80.7 kg (178 lb) SpO2 98% PHYSICAL EXAM: GEN: mildly ill appearing HEENT: PERRL, EOMI, conjunctiva clear Ears: canals clear. TMs without erythema, bulge, or effusion Sinuses: non-tender frontal sinus, non-tender maxillary sinuses Throat: moist mucous membranes, mild erythema, no exudate Neck: supple, no thyromegaly, no lymphadenopathy HEART: regular rate and rhythm, no murmurs LUNGS: clear to auscultation, no wheezes or crackles, no increased WOB ASSESSMENT/PLAN: 1. Acute non-recurrent sinusitis, unspecified location - ICD9: 461.9, ICD10: J01.90 Suspect secondary bacterial sinus infection. - AMOXICILLIN 875 MG-POTASSIUM CLAVULANATE 125 MG TABLET Continue as needed OTC symptom treatment. Timbo Nice MD Referring Provider: SELF [200] Allergies As of Date: 07/21/2023 (No Known Allergies) Date Reviewed: 07/21/2023 Reviewed by: Rachel Saez - Fully Assessed Reason for Visit: Cough [28] Cmt: nasal congestion, drainage, sob x 3 weeks, loss of voice x 1 day Primary Visit Diagnosis:Acute non-recurrent sinusitis, unspecified location [J01.90] Order(s):amoxicillin- clavulanate potassium (AUGMENTIN) 875-125 mg per tabletTake 1 tablet by mouth two times a day for 5 days.Disp: 10 tabletRfl: 0 Prescriptions as of 07/21/2023 - amoxicillin-clavulana te potassium (AUGMENTIN) 875-125 mg per tablet Take 1 tablet by mouth two times a day for 5 days. Problem List As Of Date: 07/21/2023 (None) Prescriptions ordered this encounter Disp Refills Start End AMOXICILLIN 875 MG-POTASSIUM CLAVULA* 10 t* 0 07/21/2023 07/26/2023 Route: ORAL Sig: Take 1 tablet by mouth two times a day for 5 days. Letter Text Encounter Status:Closed by TIMBO NICE on 07/21/23 Normal [facility] ED NOTEon 04-21-2017 [facility] NOTES Normal [facility] ED PROVIDERon 04-21-2017 [facility] CAC NOTES Normal [facility] NOTES Normal [facility] CT ABDOMEN/PELVIS WITHOUT CO NTRASTon 04-13-2017 CT ABDOMEN/PELVIS WITHOUT CONTRAST EXAM: CT ABDOMEN/PELVIS WITHOUT CONTRAST CLINICAL STATEMENT: Left lower quadrant pain. COMPARISON: 02/02/2017. TECHNIQUE: CT examination of the abdomen and pelvis without IV contrast. Coronal and sagittal reformations were performed. Dose reduction techniques were achieved by using automated exposure control and/or adjustment of mA and/or kV according to patient size and/or use of iterative reconstruction technique.FINDINGS: The lung bases are clear.The liver, spleen, pancreas, adrenal glands and kidneys appear satisfactory on this unenhanced CT. There are no renal calculi identified. There is no dilatation of the renal collecting structures and no calculi are identified within either ureter. There are no calcified gallstones identified. There is a nonobstructive gas pattern. Abdominal mass or adenopathy not identified. There is mild ASVD. The appendix is questionably visualized with no inflammatory change. In the pelvis the bladder is smooth and regular. There is no inflammatory changes identified in the left lower quadrant.No suspicious bony lesions are identified. Again there is spondylolysis L3 with grade 1 anterolisthesis L3 on L4.IMPRESSION:1. Renal or intraureteric calculi not identified.2. No inflammatory changes identified in the left lower quadrant.3. 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 Normal [facility] ED NOTEon 04-13-2017 [facility] NOTES Normal [facility] ED PROVIDERon 04-13-2017 [facility] CAC NOTES Normal [facility] NOTES Normal [facility] ED NOTEon 03-31-2017 [facility] NOTES Normal [facility] ED PROVIDERon 03-31-2017 [facility] CAC NOTES Normal [facility] NOTES Normal [facility] ED NOTEon 03-22-2017 [facility] NOTES Normal [facility] ED PROVIDERon 03-22-2017 [facility] CAC NOTES Normal [facility] NOTES Normal [facility] Operative Reporton 7 Operative Report Dictated by: Signed by: Transcribed by: MARI PIEDRATranscribed Date/Time: 03/02/2017 13:44Dictation Date/Time: 03/02/2017 12:16Report: DATE OF PROCEDURE: 03/02/2017 SURGEON: Derrek Hong M.D. NAME OF PROCEDURE: Esophagogastroduodeno scopy. PREPROCEDURE DIAGNOSIS: This is a 36 year old male smoker who presents with recurrent episodes of heartburn and reflux symptoms and upper abdominal epigastric pain and is taking Pantoprazole. All blood tests and ultrasound of abdomen and CT-scan of the abdomen are all normal. POSTPROCEDURE DIAGNOSIS: Gastroesophageal reflux disease with reflux esophagitis with single erosion. RECOMMENDATION: 1.) Pantoprazole should be taken on an empty stomach 30 minutes before breakfast. 2.) The patient should try to quit smoking. 3.) Caffeine and NSAID medications should be eliminated. COMPLICATIONS OF PROCEDURE: None observed. ANESTHESIA: Monitored anesthesia care provided by nurse studio camera operator. PROCEDURE FOLLOWS: The patient was taken to the [facility]. An informed consent was obtained. Cardiac monitoring engineer and pulse oximeter and automated blood pressure monitor were applied and oxygen was administered through a nasal cannula. With the patient in the left lateral position, the Olympus Electronic Videogastroscope was introduced through the mouth and was advanced into the esophagus. Single erosion is seen at the gastroesophageal junction indicating reflux esophagitis due to gastroesophageal reflux. There is no hiatal hernia or ulcer or tumor or varices or stricture or web, or diverticulum, or candidiasis or Salmon's or bleeding seen in the esophagus. The scope was advanced into the stomach, which looks normal both on forward view and on retroflexion view, with no ulcer or tumor or varices or vascular malformation or bleeding. The scope was advanced into the duodenum up to the third part which looks completely normal with no ulcer or bleeding. All the air was suctioned out. Then the gastroscope was withdrawn. The patient tolerated the procedure well. He was transferred to the recovery area in satisfactory condition with stable vital signs.Copies to Physicians(s): Normal [facility] Vital Signs Date Time Vital Sign Value Performing Clinician Jose shetty 01-14-2025 18:33-0400 Body temperature 98.2 [degF] No Primary Care Physician [facility] 01-14-2025 18:33-0400 Diastolic blood pressure 97 mm[Hg] No Primary Care Physician [facility] 01-14-2025 18:33-0400 Heart rate 87 /min No Primary Care Physician [facility] 01-14-2025 18:33-0400 Respiratory rate 18 /min No Primary Care Physician [facility] 01-14-2025 18:33-0400 SaO2% (BldA) [Mass fraction] 97 % No Primary Care Physician [facility] 01-14-2025 18:33-0400 Systolic blood pressure 140 mm[Hg] No Primary Care Physician [facility] 01-14-2025 13:51-0400 Body height 177.8 cm No Primary Care Physician [facility] 01-14-2025 13:51-0400 Body mass index (BMI) [Ratio] 24.3 kg/m2 No Primary Care Physician [facility] 01-14-2025 13:51-0400 Body weight 76.97 kg No Primary Care Physician [facility] 06-12-2024 13:45-0400 Body temperature 97.5 [degF] Adenike Oliver PRODUCTION ENGINE REPAIRER.IN HOME SALES REPRESENTATIVE Work Phone: [facility] 06-12-2024 13:45-0400 Body weight 81.8 kg Adenike Oliver PRODUCTION ENGINE REPAIRER.IN HOME SALES REPRESENTATIVE Work Phone: [facility] 06-12-2024 13:45-0400 Diastolic blood pressure 105 mm[Hg] Adenike Oliver PRODUCTION ENGINE REPAIRER.IN HOME SALES REPRESENTATIVE Work Phone: [facility] 06-12-2024 13:45-0400 Heart rate 96 /min Adenike Oliver PRODUCTION ENGINE REPAIRER.IN HOME SALES REPRESENTATIVE Work Phone: [facility] 06-12-2024 13:45-0400 Respiratory rate 18 /min Adenike Oliver PRODUCTION ENGINE REPAIRER.IN HOME SALES REPRESENTATIVE Work Phone: [facility] 06-12-2024 13:45-0400 SaO2% (BldA) [Mass fraction] 100 % Adenike Oliver PRODUCTION ENGINE REPAIRER.IN HOME SALES REPRESENTATIVE Work Phone: [facility] 06-12-2024 13:45-0400 Systolic blood pressure 147 mm[Hg] Adenike Oliver PRODUCTION ENGINE REPAIRER.IN HOME SALES REPRESENTATIVE Work Phone: [facility] Encounters Encounter Date Encounter Type Care Provider Facility Start: 01-14-2025 End: 01-14-2025 Emergency department patient visit No Primary Care Physician -Emergency Department Work Phone: Start: 06-12-2024 End: 06-12-2024 Emergency department patient visit No Primary Care Physician Facility:[facility] Start: 06-12-2024 End: 06-12-2024 ambulatory SELF Facility:[facility] Start: 06-12-2024 End: 06-12-2024 Office outpatient visit 15 minutes Adenike Oliver PRODUCTION ENGINE REPAIRER.IN HOME SALES REPRESENTATIVE Work Phone: [facility] Comment on above: Chest pain, unspecif ied type (Primary Dx) Start: 07-21-2023 End: 07-21-2023 ambulatory Facility:[facility] Start: 04-21-2017 End: 04-21-2017 Emergency department patient visit [facility] Start: 04-13-2017 End: 04-13-2017 Emergency department patient visit YAN [facility] Start: 03-31-2017 End: 03-31-2017 Emergency department patient visit [facility] Start: 03-22-2017 End: 03-22-2017 Emergency department patient visit GALDINO LU [facility] Start: 03-02-2017 End: 03-02-2017 [facility] Date Procedure Procedure Detail Performing Clinician Start: 01-14-2025 Computed tomography of abdomen and pelvis with intravenous contrast No Primary Care Physician Start: 01-14-2025 CT of head without contrast No Primary Care Physician Start: 01-14-2025 Urnls dip stick/tabl et reagent auto microscopy No Primary Care Physician Start: 01-14-2025 Estimated creatinine clearance No Primary Care Physician Start: 01-14-2025 Plain chest X-ray No Pr [facility] Care Physician Plan of Treatment Date Care Activity Detail Author Start: 01-14-2025 [facility] Start: 04-20-2024 Covid-19 Vaccine ( season) Covid-19 Vaccine ( season) [facility] Start: 04-20-2024 Influenza vaccination Influenza Vaccine (#1) [facility] Start: 11-27-2023 Diabetes Screening Diabetes Screening [facility] Start: 11-27-2023 Screening for malignant neoplasm of colon [facility] Start: 2013 Lipid panel Lipid Screening [facility] Start: 1997 Hepatitis B Vaccine (1 of 3 - 19+ 3-dose series) Hepatitis B Vaccine (1 of 3 - 19+ 3-dose series) [facility] Start: 1997 Urine microalbumin profile DTaP,Tdap,Td Vaccine (1 - Tdap) [facility] Start: 1996 Anxiety Screening Anxiety Screening [facility] Start: 1996 Depression Screening Depression Screening [facility] Start: 1996 Hepatitis C screening Hepatitis C Screening [facility] Start: 1996 HIV screening HIV Screening [facility] Start: 1984 Pneumococcal vaccination Pneumococcal Vaccine (1 of 2 - PCV) [facility] Patient referral [facility] Work Phone: Payers Date Payer Category Payer Self-pay [id number] Unknown [id number] Unknown [id number] Social History Date Type Detail Facility Start: 06-12-2024 End: 01-14-2025 Tobacco smoking status NHIS Smokes tobacco daily [facility] History of tobacco use Cigarette Smoker C [facility] Start: 06-12-2024 Tobacco use and exposure Smokeless tobacco non-user [facility] Start: 06-12-2024 History of Social function [facility] Start: 06-12-2024 Tobacco use panel [facility] Start: 1980 Sex assigned at Not on file C [facility] Start: 1980 Sex Assigned At Male [facility] Mental Status Date Assessment Result Facility 01-14-2025 Cognitive function Level Of Cons ciousness Awake;Alert;Appropriate;Follow s Commands [facility] Work Phone: Radiology Diagnostic study note 01-14-2025 Note Date & Type Note Facility 01-14-2025 Radiology Diagnostic study note [facility] Imaging Services [address] [place], [place] [id number] Abdomen/Pelvis W IV Cont ONLY MR#: [id number] Acct: [id number] Name: NELLIE TERRY Rep #: [id number] : 1980 M 44 From: Paras Raya DO PCP: Care Physician,No Primary Status: REG ER Study:Abdomen/Pelvis W IV Cont ONLY Date of E xam: 01/14/25 Exam# [id number] Ordering Dr: Joy Dixon DO PROCEDURE: ABDOMEN/PELVIS W IV CONT ONLY 01/14/2025 REASON FOR EXAM: NAUSEA WEIGHT LOSS TECHNIQUE: Abdomen and pelvis CT with intravenous contrast. Coronal and Sagittal reconstruction series were provided. PATIENT PREPARATION: Per protocol ORAL CONTRAST TYPE: None. AMOUNT: mL CONTRAST: Isovue 370 VOLUME: 94 mL Not Provided Gauge IV One or more dose reduction techniques were used (e.g., Automated exposure control, adjustment of the mA and/or kV according to patient size, use of iterative reconstruction technique. RADIATION DOSE SUMMARY: CTDlvol: 17 mGy DLP: 933 mGycm COMPARISON: None FINDINGS: Lung bases: Mild dependent atelectasis Liver: Normal size. No mass. Gallbladder: Unremarkable Spleen: Normal size. Pancreas: Normal size without evidence of mass surrounding inflammation or ductal dilation. Adrenals: Unremarkable Kidneys: Small bilateral renal cysts. No follow-up is recommended. No evidenceof hydronephrosis or nephrolithiasis. Bladder: Unremarkable Reproductive Organs: Unremarkable Bowel: Evaluation of the bowel loops are limited due to lack of oral contrast. Stomach appears grossly unremarkable. Fluid-filled portions of the small bowel, particularly distal small bowel withinthe right lower quadrant, no dilatation no wall thickening or adjacent stranding. Differentials would include ileus versus enteritis. Large bowel is grossly unremarkable. Appendix: Unremarkable Lymph nodes: No lymphadenopathy. Vasculature: Mild diffuse atherosclerotic calcifications are noted. Peritoneum / Retroperitoneum: Unremarkable Bones: Slight anterolisthesis of L3 on L4. CT/Abdomen/Pelvis W IV Cont ONLY IMPRESSION: Fluid-filled portions of the small bowel, no dilatation or wall thickening, may represent ileus versus enteritis. OVERALL FINAL ASSESSMENT: . LI-RADS is not meant to be used in patients <18 years or patients with cirrhosisdue to congenital hepatic fibrosis or due to vascular disorders, because these patients have a lower chance of developing HCC. Reading Location: [facility] CC: Dr. Heath Dixon DO; No Primary Care Physician ~ Distribution Operation Supervisor: Signed [facility] Radiology Diagnostic study note 01-14-2025 Note Date & Type Note Facility 01-14-2025 Radiology Diagnostic study note [facility] Imaging Services [address] [place] [address] Brain/Head without Contrast MR#: [id number] Acct: [id number] Name: NELLIE TERRY Joy Rep #: [id number] : 1980 M 44 From: Paras Raya DO PCP: Care Physician,No Primary Status: REG ER Study:Brain/Head without Contrast Date of Exa m: 01/14/25 Exam# [id number] Ordering Dr: Joy Dixon DO PROCEDURE: BRAIN/HEAD WITHOUT CONTRAST 01/14/2025 REASON FOR EXAM: DIZZINESS NAUSEA TECHNIQUE: Head CT without intravenous contrast. Coronal and Sagittal reconstruction serieswere provided. One or more dose reduction techniques were used (e.g., Automated exposure control, adjustment of the mA and/or kV according to patient size, use of iterative reconstruction technique. RADIATION DOSE SUMMARY: CTDlvol: 47 mGy DLP: 1049 mGycm COMPARISON: None FINDINGS: Brain: Within normal limits for age CSF Spaces: Normal Sinuses/Mastoids: Clear at visualized levels Bones: Unremarkable CT/Brain/Head without Contrast IMPRESSION: NO ACUTE FINDINGS [facility] CC: Dr. Heath Dixon DO; No Primary Care Physician ~ Distribution Operation Supervisor: Signed [facility] Radiology Diagnostic study note 01-14-2025 Note Date & Type Note Facility 01-14-2025 Radiology Diagnostic study note [facility] Imaging Services [address] [place] [address] Chest 1 View (Portable) MR#: [id number] Acct: [id number] Name: NELLIE TERRY Joy Rep #: [id number] : 1980 M 44 From: Savage Durham MD PCP: Care Physician,No Primary Status: REG ER Study:Chest 1 View (Portable) Date of Exam: 01/14/25 Exam# [id number] Ordering Dr: Joy Dixon DO PROCEDURE: CHEST 1 VIEW (PORTABLE) 01/14/2025 REASON FOR EXAM: DYSPNEA Confusion. TECHNIQUE: Frontal view of the chest. COMPARISON: None FINDINGS: Hardware: EKG electrodes are seen. Heart: Cardiac and mediastinal contours are stable. Lungs: No significant change in the appearance of the lungs. Bones: The bones are unremarkable. Other: RAD/Chest 1 View (Portable) IMPRESSION: No Acute Findings. Reading Location: [place] [address] CC: Dr. Heath Dixon, DO; No Primary Care Physician ~ Distribution Operation Supervisor: Signed [facility] Progress note 06-12-2024 Note Date & Type Note Facility 06-12-2024 Note HNO ID: [id number] Author: ADENIKE OLIVER APRN.HARRY Service: ? Author Type: Nurse Practitioner Type: Progress Notes Filed: 06/12/2024 14:20 Note Text: Triage Nellie Terry is a 43 year old male. Who presents today with chest pain shortness of breath stomachache and irregular breathing. Patient states that he had sharp midsternal chest pain today that lasted about 10 to 15 minutes the pain would come and go during this time he would become very short of breath. He also had epigastric pain during this time. He has had a little bit of cough over the last 4 days but this pain is different. In our triage process patient's blood pressure is elevated at 147/105. This is significantly elevated from his prior blood pressure of 128/84. Patient's is sitting at bedside she states that she wanted him to go to the emergency department. At this time I have agreed with her that he will need a full evaluation and have encouraged them to go to the emergency department. I have offered an ambulance and they have declined they would like to go to [facility] HPI PAST MEDICAL HISTORY Diagnosis Date NEGATIVE MEDICAL HISTORY No family history on file. Social History Tobacco Use Smoking status: Every Day Types: Cigarettes Smokeless tobacco: Never ALLERGIES No Known Allergies No current outpatient medications on file. No current facility-administered medications for this visit. OBJECTIVE: BP 147/105 Pulse 96 Temp 36.4 ?C (97.5 ?F) Resp 18 Wt 81.8 kg (180 lb 5.4 oz) SpO2 100% ROS all other systems reviewed and are negative ASSESSMENT/PLAN: 1. Chest pain, unspecified type - ICD9: 786.50, ICD10: R07.9 Adenike Oliver APRN.CNP [facility] History of Present illness Narrative 06-12-2024 Adenike Oliver APRN.CNP - 06/12/2024 2:18 PM EDT Note Date & Type Note Facility 06-12-2024 History of Presen t illness Narrative Triage Nellie Terry is a 43 year old male. Who presents today with chest pain shortness of breath stomachache and irregular breathing. Patient states that he had sharp midsternal chest pain today that lasted about 10 to 15 minutes the pain would come and go during this time he would become very short of breath. He also had epigastric pain during this time. He has had a little bit of cough over the last 4 days but this pain is different. In our triage process patient's blood pressure is elevated at 147/105. This is significantly elevated from his prior blood pressure of 128/84. Patient's is sitting at bedside she states that she wanted him to go to the emergency department. At this time I have agreed with her that he will need a full evaluation and have encouraged them to go to the emergency department. I have offered an ambulance and they have declined they would like to go to [facility] HPI PAST MEDICAL HISTORY Diagnosis Date NEGATIVE MEDICAL HISTORY No family history on file. Social History Tobacco Use Smoking status: Every Day Types: Cigarettes Smokeless tobacco: Never ALLERGIES No Known Allergies No current outpatient medications on file. No current facility-administered medications for this visit. OBJECTIVE: BP 147/105 Pulse 96 Temp 36.4 C (97.5 F) Resp 18 Wt 81.8 kg (180 lb 5.4 oz) SpO2 100% ROS all other systems reviewed and are negative ASSESSMENT/PLAN: 1. Chest pain, unspecified type - ICD9: 786.50, ICD10: R07.9 Adenike Oliver APRN.HARRY documented in this encounter [facility] Progress note 07-21-2023 Note Date & Type Note Facility 07-21-2023 Note HNO ID: [id number] Author: Timbo Nice MD Service: ? Author Type: Physician Type: Progress Notes Filed: 07/21/2023 2:48 PM Note Text: Patient presents with: Cough: nasal congestion, drainage, sob x 3 weeks, loss of voice x 1 day HPI: Feeling sick for 3 weeks. Positive symptoms: Cough, Shortness of breath (nasal congestion), Nasal Congestion, Rhinorrhea, Post nasal drainage, hoarse voice, Chest/back soreness, Sinus pressure, occasional diarrhea Negative symptoms: Fever, Chills, Vomiting, OTC: Nyquil, Dayquil No new pets or allergens. PAST MEDICAL HISTORY Diagnosis Date NEGATIVE MEDICAL HISTORY PAST SURGICAL HISTORY Procedure Laterality Date KNEE SURGERY HX Left meniscus MEDICATIONS: No current outpatient medications on file. No current facility-administered medications for this visit. ALLERGIES: ALLERGIES No Known Allergies VITALS: BP 128/84 Pulse 94 Temp 36.4 ?C (97.5 ?F) Resp 16 Wt 80.7 kg (178 lb) SpO2 98% PHYSICAL EXAM: GEN: mildly ill appearing HEENT: PERRL, EOMI, conjunctiva clear Ears: canals clear. TMs without erythema, bulge, or effusion Sinuses: non-tender frontal sinus, non-tender maxillary sinuses Throat: moist mucous membranes, mild erythema, no exudate Neck: supple, no thyromegaly, no lymphadenopathy HEART: regular rate and rhythm, no murmurs LUNGS: clear to auscultation, no wheezes or crackles, no increased WOB ASSESSMENT/PLAN: 1. Acute non-recurrent sinusitis, unspecified location - ICD9: 461.9, ICD10: J01.90 Suspect secondary bacterial sinus infection. - AMOXICILLIN 875 MG-POTASSIUM CLAVULANATE 125 MG TABLET Continue as needed OTC symptom treatment. Timbo Nice MD [facility] Evaluation note Note Date & Type Note Facility Evaluation note Diagnosis Chest pain, unspecified type- Primary documented in this encounter [facility] Evaluation note Note Date & Type Note Facility Evaluation note No assessment information availa [facility] Work Phone: Summary Purpose Family History No Family History Records Found Relationship Condition Age at Onset Recorded Date/T catherine mother Hypertension Unknown Heart problem Unknown Arthritis Unknown Advance Directives No Advanced Directives Records Found Advance Directive Response Recorded Date/ Time Do you have a Healthcare Power of Construction Carpenters Helper? No January 14, 2025 1:59pm Chief Complaint and Reason for Visit Chief Complaint Admit Date FEVER January 14, 2025 1:50p m Additional Source Comments (unrecognized sect ion and content) No Status Records FoundNo Status Records FoundNo Status Records FoundNo Status Records Found INFORMATION SOURCE (unrecogn ized section and content) DATE CREATED AUTHOR 02/13/2018 Sue augustin DATE CREATED AUTHOR AUTHOR'S ORGANIZ ATION 02/13/2018 [facility] DATE CREATED AUTHOR AUTHOR'S ORGANIZ ATION 06/14/2024 [facility] DATE CREATED AUTHOR AUTHOR'S ORGANIZ ATION 01/21/2025 [facility] Source Comments (unrecognize d section and content) In the event this informatio n is protected by the Federal Confidentiality of Alcohol and Drug Abuse Patient Records regulations: The Federal rules restrict any use of the information to criminally investigate or prosecute any alcohol or drug abuse patient.[facility] Reason for Visit (unrecogniz ed section and content) Reason Comments Cough Chest pains intermit tent, stomach pain with eating, SOB x5 days Specialty Diagnoses / Procedures Referred By Tammy dixon Referred To Contact [facility] / [facility] Diagnoses Chest Pain, stomach pain, irregular breathing, cough X 4 days Procedures EST SAME DAY [facility] [address] [place] [address] Referral ID Status Reason Start Date Expiration Date Visits Requested Visits Authorized [id number] New Request Financial Clearance Required - Self Pay 09/10/2024 1 1 Care Teams (unrecognized sec tion and content) Team Status: Active Member Role Status Dates No Primary Care Physician Primary Care Provider Active Team Status: Inactive Member Role Status Dates No Primary Care Physician Primary Care Provider Active Start: January 14, 2025 End: January 14, 2025 Dr. Heath Dixon , DO Referring Provider Active Start: January 14, 2025 End: January 14, 2025 Dr. Heath Dixon , Emergency Provider Active Start: January 14, 2025 End: May 28th, 2025 Goals (unrecognized section and content) Goals may be documented in a n alternate section FOR RECORDS PERTAINING TO PATIENTS WHO ARE OR HAVE BEEN ENROLLED IN A CHEMICAL DEPENDENCY/SUBSTANCEABUSE PROGRAM, SOME INFORMATION MAY BE OMITTED. This clinical summary was aggregated from multiple sources. Caution should be exercised in using it in the provision of clinical care. This summary normalizes information from multiple sources, and as a consequence, information in this document may materially change the coding, format and clinical context of patient data. In addition, data may be omitted in some cases. CLINICAL DECISIONS SHOULD BE BASED ON THE PRIMARY CLINICAL RECORDS. [facility]. provides no warranty or guarantee of the accuracy or completeness of information in this document.
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
[2025-01-25 23:28] LABS: Alcohol, Blood (Medical)-Serum 55.1 mg/dL (<=10.0); Anion Gap 15 (5-15); BUN 4 mg/dL (4-19); Calcium,Total 9.8 mg/dL (7.6-11.0); Carbon Dioxide 21.8 mmol/L (21.0-32.0); Chloride 103 mmol/L (98-108); Creatinine, Serum 0.96 mg/dL (0.70-1.20); EST Glomerular Filtration Rate 98 (>60); Estimated Creatinine Clearance 99.28 ml/min (50-250); Glucose 78 mg/dL (70-99); Potassium 3.1 mmol/L (3.3-5.1); Sodium Level 140 mmol/L (133-145)
[2025-01-25 23:28] LABS: Amphetamine Urine NEGATIVE (<1000 ng/mL); Barbiturate Urine NEGATIVE (< 200 ng/mL); Benzodiazepine Urine NEGATIVE (< 200 ng/mL); Buprenorphine Urine NEGATIVE (< 200 ng/mL); Cocaine Urine NEGATIVE (< 300 ng/mL); Fentanyl, Urine NEGATIVE; Methadone Urine NEGATIVE (< 300 ng/mL); Opiates Urine NEGATIVE (< 300 ng/mL); Oxycodone, Urine NEGATIVE (< 100 ng/mL); PCP Urine NEGATIVE (< 25 ng/mL); THC Urine NEGATIVE (< 50 ng/mL)
[2025-01-26 01:33] VITALS: BP 125/90; PULSE 80; RESP 18; TEMP 36.8; O2SAT 98
== END 2025-01-26 01:34 | disposition home or self-care (01) ==
PROVIDERS: Emergency Provider Emergency Medicine; Visit Provider Emergency Medicine
DX: F41.9 Anxiety disorder, unspecified (principal); Z59.89 Other problems related to housing and economic circumstances; G47.00 Insomnia, unspecified; Z56.6 Other physical and mental strain related to work; F17.210 Nicotine dependence, cigarettes, uncomplicated
CPT/HCPCS: 36415; 80048; 80307; 82077; 85025; 99284

== ENCOUNTER 2025-06-19 09:53 | Emergency (ER) | payer SELFPAY ==
[2025-06-19 09:54] VITALS: BP 159/107; PULSE 99; RESP 16; TEMP 36.7; O2SAT 99; BMI 24.0
--- NOTE | 2025-06-19 10:34 | EX.ED.DYSGE1 ---
HPI History of Present Illness Chief Complaint: Abscess Narrative Narrative: Patient is a 44-year-old male presenting to the emergency department for a possible abscess on his left upper back. Patient states that has had a bump there for a while but recently it became red and tender. Patient denies fever, chills, nausea, vomiting, fatigue. Feels well overall. States he has not had an abscess before. He denies any diabetes history, IV drug use or immunocompromise status. Denies history of MRSA. PFSH PFS Medical History Migraines Home Medications ?Medication ?Instructions ?Recorded ?Last Taken ?Type trazodone 50 mg tablet 50 mg PO QHS PRN insomnia #7 tabs 01/26/25 Unknown Rx Allergy/AdvReac Type Severity Reaction Status Date / Time guaifenesin (From DuraDEX) Allergy PT UNSURE Verified 06/19/25 10:33 OF REACTION Family History Mother Hypertension Heart problem Arthritis Surgical History History of left knee surgery Social History Smoking Status: Current every day smoker tobacco type: cigarettes alcohol intake: current alcohol intake frequency: a few times a month ROS ROS ED ROS Narrative see HPI EXAM Physical Exam Narrative Exam Narrative: Vital signs: Reviewed General: Alert and oriented x 3. No acute distress HEENT: Head is normocephalic and atraumatic, sinuses nontender, pupils equal round and reactive. Nares are patent. Oropharynx and throat exams normal. Neck: Supple without lymphadenopathy nontender Cardiovascular: Regular rate and rhythm, no murmurs. No rubs or gallops. Normal S1 and S2 Respiratory: Clear to auscultation bilaterally. No wheezes, rales, rhonchi Abdominal: Soft and nontender. Normal bowel sounds. No guarding or rebound. Nonsurgical abdomen Extremities: No tenderness. No bruising. Normal range of motion. Normal sensation. Skin: There is a 2 cm x 2 cm area of fluctuance, erythema and tenderness to the left upper middle back. There is no surrounding erythema, induration. No active drainage. The rest of the physical exam is unremarkable Const Vital Signs: 06/19/25 09:54 Temperature 98.0 F Temperature Source Oral Pulse Rate 99 Respiratory Rate 16 Blood Pressure 159/107 H Blood Pressure Mean 124 Pulse Ox 99 Oxygen Delivery Method Room Air MDM MDM MDM Narrative Medical decision making narrative: Patient is a 44-year-old male presenting to the emergency department due to concern for an abscess. Patient was seen and examined. Vitals are stable. Patient resting in bed comfortably no acute distress. [id number]-ti-[id number] ultrasound was done at bedside. There is a hypoechoic area where the abscess is located. There is no blood flow to the hypoechoic area. This verifies suspicion that it is an abscess. Informed consent for I&D was obtained. Risks and benefits of drainage were discussed. Patient has capacity. Wound was cleansed with alcohol pad. 1% lidocaine was injected for anesthetic. A stab incision with an 11 blade was made. Moderate amount of purulent drainage was expelled. Hemostats were inserted into the wound and attempts at breaking up any pockets or adhesions with reduction of additional purulent drainage. Patient tolerated well. Gauze dressing was applied. Localized abscess with no surrounding cellulitis or systemic signs. No indication for antibiotics. Patient was given wound care instructions. Instructed to return if he develops any new or worsening signs of infection including worsening redness, drainage, warmth, fevers, chills or feeling unwell. Patient discharged from the Emergency Department. I do not feel that the patient's evaluation reveals any acute reason for admission at this time. I instructed them to either follow-up with their primary care physician or promptly return to the Emergency Department for reevaluation should symptoms worsen or new symptoms develop. I explained what symptoms would indicate the need to return to the emergency department. Shared decision making was used. The patient voiced understanding of the treatment plan and is agreeable with it. Clinical impression Abscess History & Record Review Discussion w/independent historian: Patient and Significant other Discharge Plan Triage Chief Complaint: Abscess ED Provider: Reyna Denis Dx/Rx/DC Orders Clinical Impression: Abscess Instructions: ED Abscess Incision And Drainage Prescriptions: No Action trazodone 50 mg tablet 50 mg PO QHS PRN (Reason: insomnia) Qty: 7 0RF Primary Care Provider: Care Physician,No Primary Referrals: Javad Orozco MD [Med Staff - Active Staff, Family Practice] - As soon as possible Care Physician,No Primary [Primary Care Provider, Medical] Activity Restrictions/Additional Instructions: A little bit of drainage of blood over the next day or 2 is normal from the wound. If you notice any redness extending outside the edges of the wound, significant drainage, warmth, fevers, chills, nausea, vomiting or feeling unwell you need to return to the emergency department immediately. Follow-up with your primary care doctor if you do not have 1 I provided you 1 below. Your evaluation in the Emergency Department did not reveal any acute reason for admission. However, I want to emphasize that you may be early in the course of a disease process or illness even if it is not present. For this reason you should follow-up within 24 hours for reevaluation with either your primary care physician or if necessary back here in the Emergency Department. You should return to the Emergency Department immediately if your symptoms worsen or new symptoms develop. Print Language: Surinamese Disposition Disposition: Home, Self Care
[2025-06-19] MEDS: Lidocaine 1% (20 ml mdv) 20 ML Vial INFILT (11:50)
== END 2025-06-19 11:52 | disposition home or self-care (01) ==
PROVIDERS: Emergency Provider Student in an Organized Health Care Education/Training Program; Visit Provider Student in an Organized Health Care Education/Training Program
DX: L02.212 Cutaneous abscess of back [any part, except buttock and flank] (principal); F17.210 Nicotine dependence, cigarettes, uncomplicated
CPT/HCPCS: 10060; 99282